=== PATIENT | female | born 1975 | race African-American/Black ===

== ENCOUNTER 2024-08-25 08:55 | Emergency (ER) | payer OTHER, MEDICAID, SELFPAY ==
--- NOTE | ~2024-08-25 | CT_ITS ---
CT brain wo con Ordering provider: Janel Moreno PA-C History: 49 years Female with . headache, vomiting, HTN . Comparison: None. Technique: CT of the head without contrast. Radiation reduction technique utilized.The dose-length pr oduct was 605.33 mGy-cm. FINDINGS: BRAIN PARENCHYMA AND CSF SPACES: No midline shift, mass effect or hemorrhage. The brain parenchyma a nd CSF spaces are otherwise normal. Empty sella turcica. VISUALIZED PARANASAL SINUSES: Well aerated. MASTOIDS: Well aerated. BONES: The bones appear intact. SOFT TISSUES: Visualized nasopharynx is normal. Superficial soft tissues are normal. IMPRESSION: No acute intracranial findings. Reviewed, dictated and finalized at location A.
[2024-08-25 09:01] VITALS: BP 190/117; PULSE 81; RESP 18; TEMP 36.7; O2SAT 100
[2024-08-25 09:31] LABS: Basophils Percent Auto 0.4 % (0.2-1.2); Hemoglobin 12.8 g/dL (12.0-15.0); Immature Granulocyte Absolute 0.04 K/mm3 (0.00-0.031); Immature Granulocyte Percent A 0.8 % (0-0.5); Lymphocytes Absolute Auto 0.76 K/mm3 (0.9-3.2); Mean Corpuscular HGB Conc 30.5 g/dl (32-36); Mean Corpuscular Hemoglobin 24.6 pg (26-34); Mean Corpuscular Volume 80.6 fl (80-100); Mean Platelet Volume 11.4 fl (7.4-10.4); Monocytes Absolute Auto 0.1 K/mm3 (0.1-0.6); Monocytes Percent Auto 2.8 % (2.6-8.5); Neutrophils Absolute Auto 4.1 K/mm3 (1.3-6.7); Platelet Count Result 225 k/mm3 (150-375); Red Blood Count 5.21 M/mm3 (4.2-5.4); Red Cell Distribution Width 14.3 % (11.5-14.5); White Blood Count 5.1 K/mm3 (4.5-10.0)
--- OUTSIDE RECORDS SUMMARY | 2024-08-25 09:31 | XMS_ITS | Encounter Summary ---
Author Organization [facility] Address [address] [place] [address] Phone Care Team Providers Care Electric Freight Car Operator Name Role Phone Tip Dietrich MD Primary Care Provider [phone] [phone] Hussain Billings MD Unavailable Loretta Maurice MD Unavailable Neymar Dempsey MD Unavailable Hanna Morrell APRN, CALL CENTER TEAM LEADER Unavailable [phone] Kisha Carballo STRAPPER OPERATOR Unavailable Unavailab le Reason for Visit * Reason Onset Date Comments Ankle Pain 08/03/2024 Encounter Details Date Type Department Care Team (Late st Contact Info) Description 08/03/2024 [facility] [address] [place] [address] Tip Dietrich MD [address] [address] Ankle Pain Social History Tobacco Use Types Packs/Day Years Used Date Smoking Tobacco: Every Day Cigarettes 0.3 28.5 Started: 04/15/1996 Smokeless Tobacco: Never Alcohol Use Standard Drinks/Week Comments Not Currently 0 (1 standard drink = 0.6 oz pur e alcohol) 2-3 times a year [facility] Utilities Answer Date Recorded In the past 12 months has e electric, gas, oil, or water company threatened to shut off services in your home? No 03/04/2024 Social Connection and Isolation Panel [NHANES] A nswer Date Recorded In a typical week, how many times do you talk on the phone with family, friends, or neighbors? Patient declined 03/04/2024 How often do you get togethe r with friends or relatives? Patient declined 03/04/2024 How often do you attend religious or taoist serv ices? Patient declined 03/04/2024 Do you belong to any clubs o r organizations such as religious groups, unions, fraternal or athletic groups, or school groups? No 03/04/2024 How often do you attend meet ings of the clubs or organizations you belong to? Never 03/04/2024 Are you , , di vorced, , never , or living with a partner? 03/04/2024 AUDIT-C Answer Date Recorded Q1: How often do you have a drink containing alc ohol? Patient declined 03/04/2024 Q2: How many drinks containi ng alcohol do you have on a typical day when you are drinking? Patient declined 03/04/2024 Q3: How often do you have si x or more drinks on one occasion? Patient declined 03/04/2024 Overall Financial Resource Strain (CARDIA) Answe r Date Recorded How hard is it for you to pa y for the very basics like food, housing, medical care, and heating? Very hard 03/04/2024 PHQ-2 Answer Date Recorded Total Score - Questions 1-9 1 05/17 [facility] - Occupational Stress Questionnaire Answer Date Recorded Do you feel stress - tense, restless, nervous, or anxious, or unable to sleep at night because your mind is troubled all the time - these days? Rather much 03/04/2024 Exercise Vital Sign Answer Date Recorde d On average, how many days pe r week do you engage in moderate to strenuous exercise (like a brisk walk)? 0 days 03/04/2024 On average, how many minutes do you engage in exercise at this level? 0 min 03/04/2024 Hunger Vital Sign Answer Date Recorded Within the past 12 months, y ou worried that your food would run out before you got the money to buy more. Sometimes true Within the past 12 months, t he food you bought just didn't last and you didn't have money to get more. Sometimes true PRAPARE - Transportation Answer Date Re corded In the past 12 months, has l ack of transportation kept you from medical appointments or from getting medications? Yes 02/14 In the past 12 months, has l ack of transportation kept you from meetings, work, or from getting things needed for daily living? Yes 03/04/2024 Housing Stability Vital Sign Answer Joel e Recorded In the last 12 months, was t here a time when you were not able to pay the mortgage or rent on time? Patient declined 05/13/19 24 In the last 12 months, how many places have you lived? 2 05/13/2023 In the last 12 months, was t here a time when you did not have a steady place to sleep or slept in a longterm (including now)? Patient declined 05/13/2023 Housing Stability Vital Sign Answer Joel e Recorded In the last 12 months, was t here a time when you were not able to pay the mortgage or rent on time? Yes 03/04/2024 In the past 12 months, how m any times have you moved where you were living? 2 03/04/2024 At any time in the past 12 m [facility], were you homeless or living in a longterm (including now)? No 03/04/2024 Sexually Active Control Partners Comments Not Currently Male Comments No Sex and Gender Information Value Date Recorded Sex Assigned at Not on file Legal Sex Female 9:43 PM CDT Gender Identity Not on file Sexual Orientation Not on file documented as of this encounter Miscellaneous Notes * Telephone Encounter - Tip Dietrich MD - 08/03/2024 9:54 AM CDT If she is having 10/10 ankle pain, tell her to go to the ER or our [facility] in [place] today. Thanks! * Telephone Encounter - Marsha Hawthorne RN - 08/03/2024 9:33 AM CDT SITUATION: ankle pain BACKGROUND: Patient contacting PCP office. Patient states symptoms started 3 days ago. Patient states her current walker is wobbling really bad. ASSESSMENT: Symptom Description / Location: Left ankle pain Using walker more due to pain Sharp ankle pain every time she goes to move it Denies calf pain or swelling Scared to step on it Denies warmth, redness or area tender to touch. Pain: 10/10, sharp, left ankle Fever: Denies fever. Treatment / Response: Tylenol #3with no relief RECOMMENDATION: Caller understands recommendation, but refuses disposition and is requesting provider recommendations. Patient states there is nothing Dr will do when I go in there , so patient only requesting provider recommendations and does not want an appointment. Patient is also requesting prescription for a new walker as hers is wobbly. Encounter routed to provider high priority to notify. Patient would like 1[employer] message with provider response. Allergies, medications, and pharmacy verified. Care advice provided per triage guideline. Caller verbalized understanding. Discussed utilizing 1Day[employer]over[employer] to: discuss if they would prefer a [employer] message or phone call response - See care advice and disposition for Guideline. First positive answer recorded, all responses to prior questions were negative. If symptoms increase, change or if new symptoms develop, call your health care provider or call back. Recommendations were based on caller information and is not a diagnosis. Verified and reviewed all triage information with caller. Reason for Disposition SEVERE pain (e.g., excruciating, unable to walk) and not improved after 2 hours of pain medicine Protocols used: Ankle Pain-A-[place] * Telephone Encounter - Nydia Laws - 08/03/2024 9:16 AM CDT Symptom: Foot or Ankle Pain - Not From Injury Outcome: Transfer to charter driver queue Reason: Trouble walking The caller accepted this outcome. documented in this encounter Plan of Treatment Upcoming Encounters Date Type Department Care Team (Late st Contact Info) Description 09/23/2024 10:00 AM CDT Office Visit [facility] - Family Medicine - [place] [address] [place] [address] Tip Dietrich MD #[address] [place] [address] 11/05/2024 10:15 AM CDT Office Visit [facility] - Pulmonology & Sleep Medicine [facility] [address] [place] [address] Neymar Dempsey MD [address] [place] [address] documented as of this encounter Goals Goal Patient Goal Type Associated Problems Recent Progress Patient-Stated? Author Find Help in My Community-furnitur e, housing options Patient Goals On track( 1:19 PM MANAGER ADMINISTRATION) Kisha Singleton LSW Note: Follow Up Date Month of 08/07 - call 211 when I need some help - follow-up on any referrals for help I am given Review resources provided for furniture and for housing through [facility] Development Office Reach out to the agencies that will be the most helpful Continue to follow-up with applications and programs applied for Why is this important? Knowing how and where to find help for yourself or family in your neighborhood and community is an important skill. You will want to take some steps to learn how. Notes: Maintain My Quality of Life Patient Goals Not on track( 025 1:19 PM MANAGER ADMINISTRATION) Kisha Singleton LSW Note: Follow Up Date: Month 08/07 - complete a living will - name a health care proxy (decision maker) Care Management to mail ACP packet Discusses wishes with my loved ones Reach out with any questions regarding ACP paperwork Why is this important? Having a long-term illness can be scary. It can also be stressful for you and your caregiver. These steps may help. Notes: documented as of this encounter Visit Diagnoses Not on filedocumented in this encounter Additional Health Concerns Assessment Noted Time PHQ-9 Depression Total Score: 1 06/04/19 25 9:27 AM MANAGER ADMINISTRATION documented as of this encounter Care Teams Electric Freight Car Operator Relationship Specialty Start Date End Date Tip Dietrich MD #2 [facility] [address] [place] [address] PCP - General Family Medicine 11/13/21 Hussain Billings MD #2 [facility] [address] [place] [address] Consulting Physician Colon and Rectal Surgery 12/05/21 Loretta Maurice MD #2 [facility] [address] [place] [address] Consulting Physician Endocrinology 01/16/22 Neymar Dempsey MD #[address] [place] [address] Consulting Physician Pulmonary Disease 09/20/23 Hanna Morrell, REINFORCING ROD LAYER, CALL CENTER TEAM LEADER #2 [facility] [address] [place] [address] Nurse Practitioner Advanced Practice Nurse 12/23/23 Kisha Carballo, STRAPPER OPERATOR [place] [employer] Equipment Setter Asbestos Remover 03/04/24 documented as of this encounter
--- OUTSIDE RECORDS SUMMARY | 2024-08-25 09:31 | XMS_ITS | Encounter Summary ---
Author Organization [facility] Address [address] [place] [address] Phone Care Team Providers Care Prompt Care Rn Name Role Phone Tip Dietrich MD Primary Care Provider [phone] Hussain Billings MD Unavailable Loretta Maurice MD Unavailable Kisha Carballo Unavailable Unavailab Neymar Peterson MD Unavailable Hanna Morrell APRN, BICYCLE COURIER Unavailable +- [phone] Kisha Carballo Unavailable Unavailab Neymar Peterson MD Unavailable Reason for Visit * Reason Comments Medication Refill Encounter Details Date Type Department Care Team (Late st Contact Info) Description 06/11/2023 [facility]ill [facility] [address] [place] [address] Tip Dietrich MD #[address] [address] Medication Refill Social History Tobacco Use Types Packs/Day Years Used Date Smoking Tobacco: Former Cigarettes 0.3 28.4 S tarted: 1996 Smokeless Tobacco: Never Alcohol Use Standard Drinks/Week Comments Yes 0 (1 standard drink = 0.6 oz pur e alcohol) 2-3 times a year [facility] Utilities Answer Date Recorded In the past 12 months has [employer], gas, oil, or water [employer] threatened to shut off services in your home? Patient declined 05/13/2023 Social Connection and Isolation Panel [NHANES] A nswer Date Recorded In a typical week, how many times do you talk on the phone with family, friends, or neighbors? Patient declined 05/13/2023 How often do you get togethe r with friends or relatives? Patient declined 05/13/2023 How often do you attend nondenominational or sikh serv ices? Patient declined 05/13/2023 Do you belong to any clubs o r organizations such as nondenominational groups, unions, fraternal or athletic groups, or school groups? Patient declined 05/13/2023 How often do you attend meet ings of the clubs or organizations you belong to? Patient declined 05/13/2023 Are you , , di vorced, , never , or living with a partner? Patient declined 05/13/2023 AUDIT-C Answer Date Recorded Q1: How often do you have a drink containing alc ohol? Patient declined 05/13/2023 Q2: How many drinks containi ng alcohol do you have on a typical day when you are drinking? Patient declined 05/13/2023 Q3: How often do you have si x or more drinks on one occasion? Patient declined 05/13/2023 Overall Financial Resource Strain (CARDIA) Answe r Date Recorded How hard is it for you to pa y for the very basics like food, housing, medical care, and heating? Patient declined 05/13/2023 PHQ-2 Answer Date Recorded Total Score - Questions 1-9 2 11/2023 [facility] - Occupational Stress Questionnaire Answer Date Recorded Do you feel stress - tense, restless, nervous, or anxious, or unable to sleep at night because your mind is troubled all the time - these days? Patient declined 05/13/2023 Exercise Vital Sign Answer Date Recorde d On average, how many days pe r week do you engage in moderate to strenuous exercise (like a brisk walk)? Patient declined On average, how many minutes do you engage in exercise at this level? Patient declined 05/13/2023 Hunger Vital Sign Answer Date Recorded Within the past 12 months, y ou worried that your food would run out before you got the money to buy more. Patient declined Within the past 12 months, t he food you bought just didn't last and you didn't have money to get more. Patient declined PRAPARE - Transportation Answer Date Re corded In the past 12 months, has l ack of transportation kept you from medical appointments or from getting medications? Patient declined 05/13/2023 In the past 12 months, has l ack of transportation kept you from meetings, work, or from getting things needed for daily living? Patient declined 05/13/2023 Housing Stability Vital Sign [...] place to sleep or slept in a assisted (including now)? Patient declined 05/13/2023 Sexually Active Control Partners Comments Not Currently Male Comments No Sex and Gender Information Value Date Recorded Sex Assigned at Not on file Legal Sex Female 9:43 PM CDT Gender Identity Not on file Sexual Orientation Not on file documented as of this encounter Miscellaneous Notes * Telephone Encounter - Arlene Mirza RN - 06/12/2023 7:08 AM CST E-Cancel Status: Request approved by pharmacy (06/12/2023 7:04 AM SIGNAL WORKER) AL WORKER * Telephone Encounter - Arlene Mirza RN - 06/12/2023 7:07 AM CST LM on pharmacy voicemail to cancel Rx. Call office with any questions. I also discontinued this on the medication list. AL WORKER * Telephone Encounter - Tip Dietrich MD - 06/11/2023 8:14 PM SIGNAL WORKER Please cancel this refill of Vit. D that I accidentally approved. She needs to get a Vit. D lab done first (nonfasting). Lab order enterered. Thanks! AL WORKER * Telephone Encounter - Arlene Mirza RN - 06/11/2023 5:21 PM CST Last Vitamin D level in September 2022. Do you want to recheck Vitamin D? Medication failed the protocol, provider to review and approve the medication order if appropriate. Requested Prescriptions Pending Prescriptions Disp Refills ergocalciferol (VITAMIN D) 87489 UNIT Capsule [Pharmacy Med Name: VITAMIN D2 50,000 UNIT CAPSULE] 4Capsule 2 Sig: TAKE 1 CAPSULE BY MOUTH ONCE A WEEK FOR 12 DOSES. Vitamin Supplements (Adult) Protocol Failed - 06/11/2023 4:37 PM Failed - Active on medication list Failed - Vitamin D dose not greater than 1.25mg Passed - Visit with relevant provider in past 12 months or upcoming 90 days Recent Visits Date Type Provider Dept 05/13/23 Office Visit Tip Dietrich MD [facility] 03/12/23 Telemedicine Tip Dietrich MD [facility] 01/11/23 Telemedicine Tip Dietrich MD [facility] 10/24/22 Telemedicine Tip Dietrich MD [facility] 10/12/22 Office Visit Holly Limon APRN, BICYCLE COURIER [facility] 07/02/22 Office Visit Tip Dietrich MD [facility] Showing recent visits within past 365 days and meeting all other requirements Future Appointments Date Type Provider Dept 08/22/23 Appointment Tip Dietrich MD [facility] Showing future appointments within next 90 days and meeting all other requirements AL WORKER documented in this encounter Plan of Treatment Upcoming Encounters Date Type Department Care Team (Late st Contact Info) Description 09/23/2024 10:00 AM CDT Office Visit [facility] - Family Medicine - [place] [address] [place] [address] [facility] [address] [address] 11/05/2024 10:15 AM CDT Office Visit [facility] - Pulmonology & Sleep Medicine - [place] #2 [facility] [place] [address] Neymar Dmepsey MD #2 [facility] [place] [address] documented as of this encounter Results * VITAMIN D, 25 HYDROXY TOTAL (07/19/2023 8:27 AM CDT) VITAMIN D, 25 HYDROX 20 ng/mL 07/19/2023 11:21 AM CDT [facility] Blood Venipuncture / Unknown 07/19/2023 8:27 AM CDT 07/19/2023 9:32 AM CDT Narrative [facility] - 07/19/2023 11:21 AM CDT Published reference ranges for Vitamin D vary depending on time and place and method of testing, and on patient's age, sex, ethnicity and levels of other measured analytes such as parathormone, calcium and phosphorus. The result should be evaluated in conjunction with clinical findings and suspicions. [place] [facility] and Endocrine Clinical Practice Guidelines: Status Vitamin D levels (ng/mL) Deficient <=20 At risk of inadequacy 21-29 Sufficient 30-100 Centers of Disease Control and Prevention Guidelines: Status Vitamin D levels (ng/mL) Deficient <13 At risk of inadequacy 13-19 Sufficient 20-50 Possibly harmful >50 References: [place] [facility], 2010 Dietary reference intakes for calcium and vitamin D. [place]: The National Academies Press. Michelle M, Mikael N, Hussein JEAN-BAPTISTE, et al., Evaluation, treatment, and prevention of Vitamin D deficiency: an Endocrinology Clinical Practice Guideline. JCEM 2011 96: 7 1892-8533. Lala A, Fernandez C, Kike D, et al., Vitamin D Status: [place], 2165-9341, [facility] data brief, no. 59, MD [place]: [place] [facility] Statistics. 2011. Tip Dietrich MD CHEMISTRY ORDERABLES Alma Delia dailey Result [facility] [address] [place] [address] documented in this encounter Visit Diagnoses Diagnosis Vitamin D deficiency- Primary Unspecified vitamin D deficiency documented in this encounter Additional Health Concerns Infection Onset Date Last Indicated Resolved Time COVID - 19 04/01/2024 04/01/2024 04/01/2024 11:1 2 AM SIGNAL WORKER COVID - 19 07/11/2024 07/11/2024 07/11/2024 10:1 4 AM CDT Assessment Noted Time PHQ-9 Depression Total Score: 2 04/22/19 24 2:10 PM SIGNAL WORKER documented as of this encounter Care Teams Prompt Care Rn Relationship Specialty Start Date End Date Tip Dietrich MD #[address] [address] PCP - General Family Medicine 11/13/21 Hussain Billings MD #[address] [address] Consulting Physician Colon and Rectal Surgery 12/05/21 Loretta Maurice MD #[address] [id number] Consulting Physician Endocrinology 01/16/22 Kisha Carballo, FOUNDRY MOLDER OR Assistant Tennis Professional Break Out Worker 04/03/23 10/30/23 Neymar Dempsey MD #2 [place] [phone] Consulting Physician Pulmonary Disease 09/20/23 Hanna Morrell APRN, BICYCLE COURIER #2 [facility] [address] [place] [address] Nurse Practitioner Advanced Practice Nurse 12/23/23 Kisha Carballo LSW OR Assistant Tennis Professional Break Out Worker 03/04/24 Neymar Dempsey MD #2 [facility] [place] [address] Consulting Physician Pulmonary Disease 05/05/24 5 documented as of this encounter
--- OUTSIDE RECORDS SUMMARY | 2024-08-25 09:31 | XMS_ITS | Encounter Summary ---
Author Organization [facility] Address [address] [place] [address] Phone Care Team Providers Care Reinsurance Analyst Name Role Phone Tip Dietrich MD Primary Care Provider +1 [phone] Hussain Billings MD Unavailable Loretta Maurice MD Unavailable Kisha Carballo BROACH TROUBLE SHOOTER Unavailable Unavailab Neymar Peterson MD Unavailable Hanna Morrell APRN, ENVIRONMENTAL HEALTH SANITARIAN Unavailable +1- [phone] Kisha Carballo Unavailable Unavailab Neymar Peterson MD Unavailable Reason for Referral * Consult, Test & Initiate Treatment (Less Than 2 Weeks) - Closed Specialty Diagnoses / Procedures Referred By Salvatore roman Referred To Contact Diagnoses Abnormal thyroid ultrasound Multiple thyroid nodules Tip Dietrich MD #2 [facility] [address] [place] [address] Phone: tel: fax: Elizabet Lopez, CERTIFIED MEDICAL ASST, ENVIRONMENTAL HEALTH SANITARIAN 2 [facility] [address] [place] [address] Phone: tel: fax: Referral ID Status Reason Start Date Expiration Date Visits Re quested Visits Authorized [id number] Closed 09/25/2023 1 1 Scheduling Instructions Christiana is being referred to Elizabet Lopez NP at [facility] or other specialist in patient's insurance network thyroid nodules & abnormal thyroid ultrasound See below for Christiana's current medications, allergies and problem list. CURRENT MEDS: Current Outpatient Medications: albuterol 108 (90 Base) MCG/ACT Aerosol Solution, take 1-2 Puffs by inhalation every 6 hours as needed for Wheezing., Disp: 18 g, Rfl: 1 amLODIPine (NORVASC) 5 MG Tablet, TAKE 1 TABLET BY MOUTH IN THE MORNING AND IN THE EVENING, Disp: 180 Tablet, Rfl: 1 Benzonatate 200 MG Capsule, Take 200 mg by mouth. (Patient not taking: Reported on 03/08/2023), Disp: , Rfl: Blood Glucose Monitoring Suppl ([employer] Verio Flex System) w/Device Kit, , Disp: , Rfl: Blood Pressure Monitor Device, Dispense battery-operated arm cuff. Dx: I10 (Patient not taking: Reported on 07/16/2023), Disp: 1 Each, Rfl: 0 docusate sodium (COLACE) 100 MG Capsule, Take 1 Capsule by mouth daily., Disp: 90 Capsule, Rfl: 0 ergocalciferol (VITAMIN D) 06392 UNIT Capsule, Take 1 Capsule by mouth once a week for 12 doses., Disp: 12 Capsule, Rfl: 0 ferrous sulfate 325 (65 Fe) MG Tablet, Take 1 Tablet by mouth daily., Disp: 90 Tablet, Rfl: 0 gabapentin (NEURONTIN) 300 MG Capsule, Take 1 Capsule by mouth 3 times daily., Disp: 90 Capsule, Rfl: 5 HYDROcodone-acetaminophen (NORCO) 7.5-325 MG Tablet, Take 1 Tablet by mouth 2 times daily as needed for Moderate or more severe pain., Disp: 60 Tablet, Rfl: 0 ibuprofen (MOTRIN) 600 MG Tablet, Take 1 Tablet by mouth daily as needed for Moderate or more severe pain. (Patient not taking: Reported on 08/22/2023), Disp: 30 Tablet, Rfl: 3 meloxicam (MOBIC) 7.5 MG Tablet, TAKE 1 TABLET BY MOUTH EVERY DAY WITH FOOD, Disp: , Rfl: predniSONE (DELTASONE) 20 MG Tablet, Take 1 Tablet by mouth 2 times daily., Disp: 10 Tablet, Rfl: 0 solifenacin (VESICARE) 5 MG Tablet, Take 1 Tablet by mouth daily. (Patient not taking: Reported on 10/23/2022), Disp: 30 Tablet, Rfl: 1 tiZANidine (ZANAFLEX) 2 MG Tablet, TAKE 1-2 TABLETS BY MOUTH AT BEDTIME NEEDED, Disp: 60 Tablet, Rfl: 0 triamterene-hydrochlorothiazide (DYAZIDE) 37.5-25 MG Capsule, Take 1 Capsule by mouth daily., Disp: 90 Capsule, Rfl: 1 No current facility-administered medications for this visit. ALLERGIES: No Known Allergies PROBLEM LIST: Patient Active Problem List: Iron deficiency anemia Menorrhagia HTN (hypertension) COPD (chronic obstructive pulmonary disease) (HCC) Goiter Chronic pain syndrome Vitamin D deficiency Elevated serum creatinine Morbid obesity (HCC) Urinary urgency Tobacco use disorder COVID-19 Hypokalemia Syncope History of pneumonia Breast cancer screening by mammogram Sciatica of left side Chronic pain of left knee Constipation Postmenopausal Abnormal thyroid ultrasound Hot flashes Spinal stenosis of lumbar region with neurogenic claudication AMADOR (obstructive sleep apnea) Reason for Visit * Reason Onset Date Comments Referral 09/20/2023 Encounter Details Date Type Department Care Team (Late st Contact Info) Description 09/20/2023 Telephone [facility] - Family Medicine [facility] #2 [place] [address] Tip Dietrich MD #[address] [address] Referral Social History Tobacco Use Types Packs/Day Years Used Date Smoking Tobacco: Former Cigarettes 0.3 28.4 S tarted: 1996 Smokeless Tobacco: Never Alcohol Use Standard Drinks/Week Comments Yes 0 (1 standard drink = 0.6 oz pur e alcohol) 2-3 times a year [facility] Utilities Answer Date Recorded In the past 12 months has [employer], gas, oil, or water company threatened to [...] declined 05/13/2023 How often do you attend jewish or tenriism serv ices? Patient declined 05/13/2023 Do you belong to any clubs o r organizations such as jewish groups, unions, fraternal or athletic groups, or [...] Total Score - Questions 1-9 2 11/2023 [facility] - Occupational [...] place to sleep or slept in a mcc (including now)? Patient declined 05/13/2023 Sexually Active Control Partners Comments Not Currently Male Comments No Sex and Gender Information Value Date Recorded Sex Assigned at Not on file Legal Sex Female 9:43 PM CDT Gender Identity Not on file Sexual Orientation Not on file documented as of this encounter Miscellaneous Notes * Telephone Encounter - Tip Dietrich MD - 09/25/2023 12:06 PM CDT I have addended the referral order for Elizabet Lopez NP with new diagnosis. Thanks! * Telephone Encounter - Rox Noel RN - 09/24/2023 5:31 PM CDT Canceled old Endo old. New External Endo referral pended to PCP. Not sure what Provider to replace Elizabet Lopez this is for dx Obesity. * Telephone Encounter - Tip Dietrich MD - 09/24/2023 2:27 PM CDT Please cancel out this old Endo referral. I put a new one in with a different provider. Thanks! * Telephone Encounter - Rox Noel, RN - 09/24/2023 2:22 PM CDT Already have an External Endocrinology referral, we need to : the provider has the following option(s): Need dx code updated in referral order or office note. Then they can process referral. * Telephone Encounter - Tip Dietrich MD - 09/22/2023 9:19 PM CDT Please pend me an order for EXTERNAL Endocrinology. Thanks! documented in this encounter Plan of Treatment Upcoming Encounters Date Type Department Care Team (Late st Contact Info) Description 09/23/2024 10:00 AM CDT Office Visit [facility] - Family Medicine [facility] #2 [place] [address] Tip Dietrich MD #[address] [address] 11/05/2024 10:15 AM CDT Office Visit [facility] - Pulmonology & Sleep Medicine [facility] #2 [place] [address] Neymar Dempsey MD #2 [place] [address] Scheduled Referrals Name Type Priority Associated Diagnoses Order Schedule EXTERNAL ENDOCRINOLOGY REFERRAL Outpatient Referral Less Than 2 weeks Abnormal thyroid ultrasound Multiple thyroid nodules Expected: 09/25/2023 (Approximate), Expires: 09/24/2024 documented as of this encounter Visit Diagnoses Diagnosis Goiter- Primary Goiter, unspecified Abnormal thyroid ultrasound Nonspecific abnormal results of thyroid function study Multiple thyroid nodules Nontoxic multinodular goiter documented in this encounter Additional Health Concerns Infection Onset Date Last Indicated Resolved Time COVID - 19 04/01/2024 04/01/2024 04/01/2024 11:1 2 AM DIVISION LEADER COVID - 19 07/11/2024 07/11/2024 07/11/2024 10:1 4 AM CDT Assessment Noted Time PHQ-9 Depression Total Score: 2 04/22/19 2:10 PM DIVISION LEADER documented as of this encounter Care Teams Reinsurance Analyst Relationship Specialty Start Date End Date Tip Dietrich MD #[address] [address] PCP - General Family Medicine 11/13/21 Hussain Billings MD #2 [facility] [address] [place] [address] Consulting Physician Colon and Rectal Surgery 12/05/21 Loretta Maurice MD #[address] [address] Consulting Physician Endocrinology 01/16/22 Kisha Carballo LSW [place] Reporting Process Consultant Child Life Assistant 04/03/23 10/30/23 Neymar Dempsey MD #2 [place] [address] Consulting Physician Pulmonary Disease 09/20/23 Hanna Morrell APRN, ENVIRONMENTAL HEALTH SANITARIAN #2 [facility] [address] [place] [address] Nurse Practitioner Advanced Practice Nurse 12/23/23 Kisha Carballo LSW [place] Reporting Process Consultant Child Life Assistant 03/04/24 Neymar Dempsey MD #2 [place] [address] Consulting Physician Pulmonary Disease 05/05/24 5 documented as of this encounter
--- OUTSIDE RECORDS SUMMARY | 2024-08-25 09:31 | XMS_ITS | Encounter Summary ---
Author Organization [facility] Address [address] [place] [address] Phone Care Team Providers Care Commercial Green Building Designer Name Role Phone Tip Dietrich MD Primary Care Provider [phone] [phone] Hussain Billings MD Unavailable Loretta Maurice MD Unavailable Neymar Dempsey MD Unavailable Hanna Morrell APRN, STAKING PRESS OPERATOR Unavailable +- [phone] Kisha Carballo Unavailable Unavailab Neymar Peterson MD Unavailable Reason for Visit * Reason Onset Date Comments Prior Authorization 05/04/2024 AUTH DENIED, P2P OFFERED. Encounter Details Date Type Department Care Team (Late st Contact Info) Description 05/04/2024 Telephone [facility] Outpatient [address] [place] [address] Jory Khanna, PAC [address] [place] [address] Prior Authorization (AUTH DENIED, P2P OFFERED.) Social History Tobacco Use Types Packs/Day Years Used Date Smoking Tobacco: Former Cigarettes 0.3 28.5 S tarted: 04/15/1996 Smokeless Tobacco: Never Alcohol Use Standard Drinks/Week Comments Not Currently 0 (1 standard drink = 0.6 oz pur e alcohol) 2-3 times a year [facility] Utilities Answer Date Recorded In the past 12 months has [employer], gas, oil, or water company threatened to [...] declined 03/04/2024 How often do you attend mandaen or scientologist serv ices? Patient declined 03/04/2024 Do you belong to any clubs o r organizations such as mandaen groups, unions, fraternal or athletic groups, or [...] Date Recorded Total Score - Questions 1-9 4 02/14 [facility] - Occupational Stress Questionnaire Answer Date [...] place to sleep or slept in a detention (including now)? Patient declined 05/13/2023 Housing Stability [...] any time in the past 12 m [facility], were you homeless or living in a detention (including now)? No 03/04/2024 Sexually Active Control Partners Comments Not Currently Male Comments No Sex and Gender Information Value Date Recorded Sex Assigned at Not on file Legal Sex Female 9:43 PM CDT Gender Identity Not on file Sexual Orientation Not on file documented as of this encounter Miscellaneous Notes * Telephone Encounter - Tip Dietrich MD - 05/07/2024 2:32 PM RADIOSONDE SPECIALIST Thanks for setting this up :) OSONDE SPECIALIST * Telephone Encounter - Ramila Smith RN - 05/07/2024 2:25 PM CST Called and scheduled a peer to peer on 05-11-2024 at 1:30 They will call for this. OSONDE SPECIALIST * Telephone Encounter - Tip Dietrich MD - 05/04/2024 3:05 PM RADIOSONDE SPECIALIST Schedule a peer to peer this week for this. Thanks! OSONDE SPECIALIST * Telephone Encounter - Shirley Browning Tesfaye - 05/04/2024 2:21 PM CST Auth Denied-P2P offered Ordering Provider: Internal If external office contacted, phone number called: N/A Spoke to: N/A Appointment Info: Clinic: [facility] Cardiology Services Clinic Provider: DEBRA Appt Date/Time: Saturday 5:00 PM Payor + Plan: MEDICAID [facility] [facility] - [employer] [facility] MEDICAID CPT/Test: 77521 ADULT TRANS THORACIC ECHO 2D COMPLETE Authorization denied through: [employer] Phone number called: [phone] Reference number / front desk representative's name and time of call: PAIGEMANUELITO Mackay Estimated Amount [Full Charges]: N/A Reason for denial: Imaging can be done when the notes from your doctor show one of these new or worsening signs and/or symptoms of heart disease. -You have chest pain or discomfort. -You have events that feel like your heart is beating very fast, fluttering or pounding. -One of the other signs and/or symptoms listed in this guideline. The notes sent to us do not show any of these. A study like the one requested has already been approved for you. An approval letter has been sent to you. We need results of the prior approved study that show the need for repeat imaging or your doctor must confirm that the prior approved study was not performed and will not be performed. The notes sent from your doctor did not provide these details. Add'l Steps Taken (Pt Notified, Reached out to Provider, etc.): TE SENT AND PT NOTIFIED Peer to Peer review offered by Payer: Yes Peer to Peer review expires: 05/13/24 Case #: [id number] Phone #: [phone] OPT 4 Ordering Provider: SRI Simons. Notified? Yes Note for ordering office: If patient wishes to cancel the appointment, please complete cancellationprocess from the patient's appointment desk. OSONDE SPECIALIST documented in this encounter Plan of Treatment Upcoming Encounters Date Type Department Care Team (Late st Contact Info) Description 09/23/2024 10:00 AM CDT Office Visit [facility] - Family Medicine - [place] #2 [place] [address] Tip Dietrich MD #[address] [address] 11/05/2024 10:15 AM CDT Office Visit [facility] - Pulmonology & Sleep Medicine - [place] #2 [place] [address] Neymar Dempsey MD #2 [place] [address] documented as of this encounter Goals Goal Patient Goal Type Associated Problems Recent Progress Patient-Stated? Author Find Help in My Community-furnitur e, housing options Patient Goals On track( 025 1:19 PM RADIOSONDE SPECIALIST) Kisha Singleton LSW Note: Follow Up Date Month of 08/07 - call 211 when I need some help - follow-up on any referrals for help I am given Review resources provided for furniture and for housing through [facility] Development Office Reach out to the [...] Goals Not on track( 025 1:19 PM RADIOSONDE SPECIALIST) Kisha Singleton LSW Note: Follow Up Date: [...] filedocumented in this encounter Additional Health Concerns Infection Onset Date Last Indicated Resolved Time COVID - 19 07/11/2024 07/11/2024 07/11/2024 10:1 4 AM CDT Assessment Noted Time PHQ-9 Depression Total Score: 4 03/04/20 24 11:50 AM RADIOSONDE SPECIALIST documented as of this encounter Care Teams Commercial Green Building Designer Relationship Specialty Start Date End Date Tip Dietrich MD #[address] [address] PCP - General Family Medicine 11/13/21 Hussain Billings MD #[address] [address] Consulting Physician Colon and Rectal Surgery 12/05/21 Loretta Maurice MD #[address] [address] Consulting Physician Endocrinology 01/16/22 Neymar Dempsey MD #2 [place] [address] Consulting Physician Pulmonary Disease 09/20/23 Hanna Morrell, RESIN SHAVER, STAKING PRESS OPERATOR #2 [facility] [address] [place] [address] Nurse Practitioner Advanced Practice Nurse 12/23/23 Kisha Carballo, [facility] Chip Unloader Surveillance Camera Technician 03/04/24 Neymar Dempsey MD #[address] [place] [address] Consulting Physician Pulmonary Disease 05/05/24 5 documented as of this encounter
--- OUTSIDE RECORDS SUMMARY | 2024-08-25 09:32 | XMS_ITS | Encounter Summary ---
Author Organization [facility] Address [address] [place] [address] Phone Care Team Providers Care Practice Assistant Name Role Phone Tip Dietrich MD Primary Care Provider +1 [phone] Kisha Carballo Unavailable Unavailab Hussain Park MD Unavailable Loretta Maurice MD Unavailable Kisha Carballo Unavailable Unavailab Neymar Peterson MD Unavailable Hanna Morrell APRN, SYSTEM OPERATOR Unavailable +- [phone] Kisha Carballo Unavailable Unavailab Neymar Peterson MD Unavailable Reason for Visit * Reason Comments Medication Refill Encounter Details Date Type Department Care Team (Late st Contact Info) Description 07/22/2022 Refill [facility] - Family Medicine [facility] #2 [place] [address] Tip Dietrich MD #[address] [address] Medication Refill Social History Tobacco Use Types Packs/Day Years Used Date Smoking Tobacco: Former Cigarettes 0.3 28.4 S tarted: 1996 Smokeless Tobacco: Never Alcohol Use Standard Drinks/Week Comments Yes 0 (1 standard drink = 0.6 oz pur e alcohol) 2-3 times a year PHQ-2 Answer Date Recorded Total Score - Questions 1-9 1 11/13 Sexually Active Control Partners Comments Not Currently Male Comments No Sex and Gender Information Value Date Recorded Sex Assigned at Not on file Legal Sex Female 9:43 PM CDT Gender Identity Not on file Sexual Orientation Not on file COVID-19 Exposure Response Date Recorded In the last 10 days, have yo u been in contact with someone who was confirmed or suspected to have Coronavirus/COVID-19? No / Unsure 07/02/2022 3:26 PM CDT documented as of this encounter Miscellaneous Notes * Telephone Encounter - Magalie Beckman RN - 07/23/2022 9:42 AM CDT Refill requested too soon. documented in this encounter Plan of Treatment Upcoming Encounters Date Type Department Care Team (Late st Contact Info) Description 09/23/2024 10:00 AM CDT Office [facility] - Family Medicine - [place] #2 [place] [address] Tip Dietrich MD #[address] [address] 11/05/2024 10:15 AM CDT Office Visit [facility] - Pulmonology & Sleep Medicine [facility] #2 [place] [address] Neymar Dempsey MD #[address] [place] [address] documented as of this encounter Visit Diagnoses Not on filedocumented in this encounter Additional Health Concerns Infection Onset Date Last Indicated Resolved Time COVID - 19 04/01/2024 04/01/2024 04/01/2024 11:1 2 AM CABLE WEAVER COVID - 19 07/11/2024 07/11/2024 07/11/2024 10:1 4 AM CDT documented as of this encounter Care Teams Practice Assistant Relationship Specialty Start Date End Date Tip Dietrich MD #2 [facility] [address] [place] [address] PCP - General Family Medicine 11/13/21 Kisha Carballo, WEATHERIZATION INSTALLER [place] Guest Services Representative 11/23/21 08/30/22 Hussain Billings MD #2 [facility] [address] [place] [address] Consulting Physician Colon and Rectal Surgery 12/05/21 Loretta Maurice MD #2 [facility] [address] [place] [address] Consulting Physician Endocrinology 01/16/22 Kisha Carballo, WEATHERIZATION INSTALLER [place] Warehouse Shipping Supervisor Guest Services Representative 04/03/23 10/30/23 Neymar Dempsey MD #[address] [place] [address] Consulting Physician Pulmonary Disease 09/20/23 Hanna Morrell APRN, SYSTEM OPERATOR #2 [facility] [address] [place] [address] Nurse Practitioner Advanced Practice Nurse 12/23/23 Kisha Carballo LSW [place] Warehouse Shipping Supervisor Guest Services Representative 03/04/24 Neymar Dempsey MD #[address] [place] [address] Consulting Physician Pulmonary Disease 05/05/24 5 documented as of this encounter
--- OUTSIDE RECORDS SUMMARY | 2024-08-25 09:32 | XMS_ITS | Encounter Summary ---
Author Organization [facility] Address [address] [place] [address] Phone Care Team Providers Care Sand Drier Name Role Phone Tip Diertich MD Primary Care Provider [phone] [phone] Kisha Carballo Unavailable Unavailab Hussain Park MD Unavailable Loretta Maurice MD Unavailable Kisha Carballo Unavailable Unavailab Neymar Peterson MD Unavailable Hanna Morrell APRN, TELEVISION NEWS PRODUCER Unavailable +- [phone] Kisha Carballo Unavailable Unavailab Neymar Peterson MD Unavailable Reason for Visit * Reason Comments Medication Refill Encounter Details Date Type Department Care Team (Late st Contact Info) Description 06/04/2022 Refill [facility] - Family Medicine - [place] #2 [place] [address] Tip Dietrich MD #[address] [address] Medication Refill Social History Tobacco Use Types [...] Telephone Encounter - Magalie Beckman RN - 06/04/2022 11:42 AM ELEMENTARY CLASSROOM TEACHER PDMP 05/04/22 #60 Medication failed the protocol, provider to review and approve the medication order if appropriate. Requested Prescriptions Pending Prescriptions Disp Refills tiZANidine (ZANAFLEX) 2 MG Tablet [Pharmacy Med Name: TIZANIDINE HCL 2 MG TABLET] 60 Tablet 0 Sig: TAKE 1-2 TABLETS BY MOUTH AT BEDTIME NEEDED Not Delegated - Muscle Relaxants Protocol Failed - 06/04/2022 12:03 AM Failed - This refill cannot be delegated Passed - Visit with relevant provider in past 12 months or upcoming 90 days Recent Visits Date Type Provider Dept 04/03/22 Office Visit Tip Dietrich MD [facility] 12/26/21 Office Visit Tip Dietrich MD [facility] 12/11/21 Office Visit Sam Rowell APRN, [facility] [place] 11/13/21 Office Visit Sam Rowell [facility], [facility] Showing recent visits within past 365 days and meeting all other requirements Future Appointments Date Type Provider Dept 07/02/22 Appointment Tip Dietrich MD [facility] Showing future appointments within next 90 days and meeting all other requirements Passed - ALT less than 90 and AST less than 55 on record in past 12 months SGOT (AST) Date Value Ref Range Status 03/20/2022 13 <=32 U/L Final SGPT (ALT) Date Value Ref Range Status 03/20/2022 10 <=41 U/L Final ENTARY CLASSROOM TEACHER documented in this encounter Plan of Treatment Upcoming Encounters Date Type Department Care Team (Late st Contact Info) Description 09/23/2024 10:00 AM CDT Office Visit [facility] #2 [place] [address] Tip Dietrich MD #[address] [address] 11/05/2024 10:15 AM CDT Office Visit [facility] - Pulmonology & Sleep Medicine [facility] #2 [place] [address] Neymar Dempsey MD #2 [place] [address] documented as of this encounter Visit Diagnoses Not on filedocumented in this encounter Additional Health Concerns Infection Onset Date Last Indicated Resolved Time COVID - 19 04/01/2024 04/01/2024 04/01/2024 11:1 2 AM ELEMENTARY CLASSROOM TEACHER COVID - 19 07/11/2024 07/11/2024 07/11/2024 10:1 4 AM CDT documented as of this encounter Care Teams Sand Drier Relationship Specialty Start Date End Date Tip Dietrich MD #[address] [address] PCP - General Family Medicine 11/13/21 Kisha Carballo LSW [place] Composite Worker 11/23/21 08/30/22 Hussain Billings MD #[address] [address] Consulting Physician Colon and Rectal Surgery 12/05/21 Loretta Maurice MD #[address] [address] Consulting Physician Endocrinology 01/16/22 Kisha Carballo LSW [place] Policewoman Composite Worker 04/03/23 10/30/23 Neymar Dempsey MD #2 [place] [address] Consulting Physician Pulmonary Disease 09/20/23 Hanna Morrell APRN, TELEVISION NEWS PRODUCER #[address] [address] Nurse Practitioner Advanced Practice Nurse 12/23/23 Kisha Carballo LSW [place] Policewoman Composite Worker 03/04/24 Neymar Dempsey MD #2 [place] [address] Consulting Physician Pulmonary Disease 05/05/24 5 documented as of this encounter
--- OUTSIDE RECORDS SUMMARY | 2024-08-25 09:32 | XMS_ITS | Encounter Summary ---
Author Organization [facility] Address [address] [place] [address] Phone Care Team Providers Care Shrimp Packer Name Role Phone Tip Dietrich MD Primary Care Provider [phone] Hussain Billings MD Unavailable Loretta Maurice MD Unavailable Kisha Carballo FOOD MIXER ASSEMBLER Unavailable Unavailab Neymar Peterson MD Unavailable Hanna Morrell APRN, SASH STICKER Unavailable +1- [phone] Kisha Carballo Unavailable Unavailab Neymar Peterson MD Unavailable Reason for Visit * Reason Onset Date Comments Referral 11/28/2022 External Pain Re ferral Encounter Details Date Type Department Care Team (Late st Contact Info) Description 11/28/2022 Telephone [facility] [address] [place] [address] Tip Dietrich MD #[address] [address] Referral (External Pain Referral) Social History Tobacco Use Types Packs/Day Years [...] encounter Miscellaneous Notes * Telephone Encounter - Jesi Shaw RMA - 12/05/2022 1:42 PM CDT Pt notified * Telephone Encounter - Jesi Shaw RMA - 12/03/2022 9:17 AM CDT Lvm to return call * Telephone Encounter - Tip Dietrich MD - 12/01/2022 5:18 PM CDT OK, looks like she already has an open pain management referral. Please make sure she gets scheduled. Thanks! * Telephone Encounter - Jesi Shaw RMA - 11/29/2022 8:54 AM CDT Spoke with patient, states she has no insurance but yes would like to proceed to see pain management, * Telephone Encounter - Jesi Shaw RMA - 11/28/2022 9:46 AM CDT Lvm to return call * Telephone Encounter - Holly Limon APRN, LAMBERT - 11/28/2022 8:56 AM CDT Please call patient and see if she still wants to see pain management. * Telephone Encounter - Kiesha Herrera - 11/28/2022 8:36 AM CDT SITUATION: [facility] Referrals is requesting provider review for External Pain Referral. BACKGROUND: Referral unable to be processed. ASSESSMENT: Request for provider review due to the following reason(s): Patient refusal or unable to contact patient. RECOMMENDATION: Based on the above information the provider has the following option(s): Multiple attempts have been made to contact patient about referral with no response. No further attempts will be made. Referral closed. documented in this encounter Plan of Treatment Upcoming Encounters Date Type Department Care Team (Late st Contact Info) Description 09/23/2024 10:00 AM CDT Office Visit 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 COVID - 19 07/11/2024 07/11/2024 07/11/2024 10:1 4 AM CDT documented as of this encounter Care Teams Shrimp Packer Relationship Specialty Start Date End Date Tip Dietrich MD #2 [facility] [address] [place] [address] PCP - General Family Medicine 11/13/21 Hussain Billings MD #2 [facility] [address] [place] [address] Consulting Physician Colon and Rectal Surgery 12/05/21 Loretta Maurice MD #2 [facility] [address] [place] [address] Consulting Physician Endocrinology 01/16/22 Kisha Carballo, FOOD MIXER ASSEMBLER [place] Parts Designer Funeral Assistant 04/03/23 10/30/23 Neymar Dempsey MD #2 [place] [address] Consulting Physician Pulmonary Disease 09/20/23 Hanna Morrell APRN, SASH STICKER #2 [facility] [address] [place] [address] Nurse Practitioner Advanced Practice Nurse 12/23/23 Kisha Carballo, FOOD MIXER ASSEMBLER [place] Parts Designer Funeral Assistant 03/04/24 Neymar Dempsey MD #2 [place] [address] Consulting Physician Pulmonary Disease 05/05/24 5 documented as of this encounter
--- OUTSIDE RECORDS SUMMARY | 2024-08-25 09:32 | XMS_ITS | Encounter Summary ---
Author Organization [facility] Address [address] [place] [address] Phone Care Team Providers Care Mine Inspector Name Role Phone Tip Dietrich MD Primary Care Provider [phone] [phone] Hussain Billings MD Unavailable Loretta Maurice MD Unavailable Kisha Carballo Unavailable Unavailab Neymar Peterson MD Unavailable Hanna Morrell APRN, MANAGER SEARCH Unavailable +- [phone] Kisha Carballo Unavailable Unavailab Neymar Peterson MD Unavailable Reason for Visit * Reason Comments Medication Refill Encounter Details Date Type Department Care Team (Late st Contact Info) Description 03/31/2023 Refill [facility] - Family Medicine [facility] #2 [place] [address] Tip Dietrich MD #[address] [address] Medication Refill Social History Tobacco Use Types [...] Telephone Encounter - Arlene Mirza RN - 04/01/2023 9:10 AM CST PRN medication requires review from provider Per nursing clinical judgement, provider to review and approve the medication(s) order(s) if appropriate. Requested Prescriptions Pending Prescriptions Disp Refills ibuprofen (MOTRIN) 600 MG Tablet [Pharmacy Med Name: IBUPROFEN 600 MG TABLET] 30 Tablet 3 Sig: TAKE 1 TABLET BY MOUTH ONCE DAILY NEEDED FOR MILD OR MORE SEVERE PAIN NSAIDs Protocol Passed - 03/31/2023 6:37 PM Passed - Normal serum creatinine in past 12 months CREATININE, BLOOD Date Value Ref Range Status 10/12/2022 0.74 0.60 - 1.10 mg/dL Final Passed - No positive test in the past 12 months or most recent test was negative Passed - Visit with relevant provider in past 12 months or upcoming 90 days Recent Visits Date Type Provider Dept 03/12/23 Telemedicine Tip Dietrich MD [facility] 01/11/23 Telemedicine Tip Dietrich MD [facility] 10/24/22 Telemedicine Tip Dietrich MD [facility] 10/12/22 Office Visit Holly Limon APRN, [facility] [place] 07/02/22 Office Visit Tip Dietrich MD [facility] 04/03/22 Office Visit Tip Dietrich MD [facility] Showing recent visits within past 365 days and meeting all other requirements Future Appointments Date Type Provider Dept 05/13/23 Appointment Tip Dietrich MD [facility] Showing future appointments within next 90 days and meeting all other requirements Passed - No active on record Passed - No matching NSAID med order in past 45 days No matching medication orders between 02/15/2023 9:10 AM and 04/01/2023 9:10 AM Passed - AST less than 55 or ALT less than 90 in past 12 months SGOT (AST) Date Value Ref Range Status 10/12/2022 15 <=32 U/L Final SGPT (ALT) Date Value Ref Range Status 10/12/2022 16 <=41 U/L Final Passed - HGB greater than 10 or HCT greater than 30 in past 12 months HEMOGLOBIN (HGB) Date Value Ref Range Status 10/12/2022 13.2 12.0 - 15.8 g/dL Final HEMATOCRIT (HCT) Date Value Ref Range Status 10/12/2022 41.9 36.0 - 47.0 % Final Refused Prescriptions Disp Refills ergocalciferol (VITAMIN D) 76397 UNIT Capsule 4 Capsule 2 Sig: Take 1 Capsule by mouth once a week for 12 doses. Vitamin Supplements (Adult) Protocol Failed - 03/31/2023 6:37 PM Failed - Active on medication list Failed - Vitamin D dose not greater than 1.25mg Passed - Visit with relevant provider in past 12 months or upcoming 90 days Recent Visits Date Type Provider Dept 03/12/23 Telemedicine Tip Dietrich MD [facility] 01/11/23 Telemedicine Tip Dietrich MD [facility] 10/24/22 Telemedicine Tip Dietrich MD [facility] 10/12/22 Office Visit Holly Limon APRN, CNP [facility] 07/02/22 Office Visit Tip Dietrich MD [facility] 04/03/22 Office Visit Tip Dietrich MD [facility] [place] Showing recent visits within past 365 days and meeting all other requirements Future Appointments Date Type Provider Dept 05/13/23 Appointment Tip Dietrich MD [facility] [place] Showing future appointments within next 90 days and meeting all other requirements EMS SECURITY ANALYST * Telephone Encounter - Jami Sy RN - 03/31/2023 3:55 PM CST Patient calling to check on her Ibuprofen and Vitamin D prescriptions. Both are pended for review. EMS SECURITY ANALYST documented in this encounter Plan of Treatment Upcoming Encounters Date Type Department Care Team (Late st Contact Info) Description 09/23/2024 10:00 AM CDT Office Visit [facility] Family Medicine [facility] #2 [place] [address] Tip Dietrich MD #[address] [address] 11/05/2024 10:15 AM CDT Office Visit [facility] - Pulmonology & Sleep Medicine - [place] #2 [place] [address] Neymar Dempsey MD #2 [place] [address] documented as of this encounter Visit Diagnoses Not on filedocumented in this encounter Additional Health Concerns Infection Onset Date Last Indicated Resolved Time COVID - 19 04/01/2024 04/01/2024 04/01/2024 11:1 2 AM SYSTEMS SECURITY ANALYST COVID - 19 07/11/2024 07/11/2024 07/11/2024 10:1 4 AM CDT documented as of this encounter Care Teams Mine Inspector Relationship Specialty Start Date End Date Tip Dietrich MD #[address] [address] PCP - General Family Medicine 11/13/21 Hussain Billings MD #[address] [address] Consulting Physician Colon and Rectal Surgery 12/05/21 Loretta Maurice MD #[address] [address] Consulting Physician Endocrinology 01/16/22 Kisha Carballo, HEEL COVERER [place] Customer Care Assistant Respiratory Therapy Manager 04/03/23 10/30/23 Neymar Dempsey MD #2 [place] [address] Consulting Physician Pulmonary Disease 09/20/23 Hanna Morrell APRN, MANAGER SEARCH #[address] [address] Nurse Practitioner Advanced Practice Nurse 12/23/23 Kisha Carballo, BRIANNE [place] Customer Care Assistant Respiratory Therapy Manager 03/04/24 Neymar Dempsey MD #2 [place] [address] Consulting Physician Pulmonary Disease 05/05/24 5 documented as of this encounter
--- OUTSIDE RECORDS SUMMARY | 2024-08-25 09:32 | XMS_ITS | Encounter Summary ---
Author Organization [facility] Address [address] [place] [address] Phone Care Team Providers Care Video Tape Duplicator Name Role Phone Tip Dietrich MD Primary Care Provider +1 [phone] Kisha Carballo Unavailable Unavailab Hussain Park MD Unavailable Loretta Maurice MD Unavailable Kisha Carballo Unavailable Unavailab Neymar Peterson MD Unavailable Hanna Morrell APRN, RETURNS PROCESSOR Unavailable +- [phone] Kisha Carballo Unavailable Unavailab Neymar Peterson MD Unavailable Reason for Visit * Reason Comments Medication Refill Encounter Details Date Type Department Care Team (Late st Contact Info) Description 07/19/2022 Refill [facility] - Family Medicine [facility] #2 [place] [address] Tip Dietrich MD #[address] [address] Medication Refill Social History Tobacco Use Types [...] Telephone Encounter - Jesi Shaw RMA - 07/24/2022 4:29 PM CDT LVM * Telephone Encounter - Jesi Shaw RMA - 07/23/2022 3:08 PM CDT LVM to return call * Telephone Encounter - Arlene Mirza RN - 07/19/2022 4:14 PM CDT Needs lab work * Telephone Encounter - Arlene Mirza RN - 07/19/2022 4:13 PM CDT Vitamin D cancelled at [facility] * Telephone Encounter - Tip Dietrich MD - 07/19/2022 9:14 AM CDT Please tell her pharmacy to cancel this Vit. D script that I accidentally approved. She needs to get the Vit. D lab done first (nonfasting). She has an open lab order for this. Thanks! * Telephone Encounter - Magalie Beckman RN - 07/19/2022 8:53 AM CDT Medication failed the protocol, provider to review and approve the medication order if appropriate. Requested Prescriptions Pending Prescriptions Disp Refills ibuprofen (MOTRIN) 600 MG Tablet [Pharmacy Med Name: IBUPROFEN 600 MG TABLET] 30 Tablet 3 Sig: Take 1 Tablet by mouth daily as needed for Mild or more severe pain. NSAIDs Protocol Passed - 07/19/2022 7:23 AM Passed - Normal serum creatinine in past 12 months CREATININE, BLOOD Date Value Ref Range Status 04/04/2022 0.85 0.60 - 1.10 mg/dL Final Passed - No positive test in the past 12 months or most recent test was negative Passed - Visit with relevant provider in past 12 months or upcoming 90 days Recent Visits Date Type Provider Dept 07/02/22 Office Visit Tip Dietrich MD [facility] 04/03/22 Office Visit Tip Dietrich MD [facility] 12/26/21 Office Visit Tip Dietrich MD [facility] 12/11/21 Office Visit Sam Rowell APRN, [facility] [place] 11/13/21 Office Visit Sam [place]ell APRN, [facility] [place] Showing recent visits within past 365 days and meeting all other requirements Future Appointments Date Type Provider Dept 10/03/22 Appointment Tip Dietrich MD [facility] Showing future appointments within next 90 days and meeting all other requirements Passed - No active on record Passed - No matching NSAID med order in past 45 days No matching medication orders between 06/04/2022 8:53 AM and 07/19/2022 8:53 AM Passed - AST less than 55 or ALT less than 90 in past 12 months SGOT (AST) Date Value Ref Range Status 03/20/2022 13 <=32 U/L Final SGPT (ALT) Date Value Ref Range Status 03/20/2022 10 <=41 U/L Final Passed - HGB greater than 10 or HCT greater than 30 in past 12 months HEMOGLOBIN (HGB) Date Value Ref Range Status 03/20/2022 14.1 12.0 - 15.8 g/dL Final HEMATOCRIT (HCT) Date Value Ref Range Status 03/20/2022 44.5 36.0 - 47.0 % Final ergocalciferol (VITAMIN D) 42333 UNIT Capsule [Pharmacy Med Name: VITAMIN D2 1.25MG(50,000 UNIT)] 4Capsule 2 Sig: Take 1 Capsule by mouth once a week for 12 doses. Vitamin Supplements (Adult) Protocol Failed - 07/19/2022 7:23 AM Failed - Active on medication list Failed - Vitamin D less than 1.25mg Passed - Visit with relevant provider in past 12 months or upcoming 90 days Recent Visits Date Type Provider Dept 07/02/22 Office Visit Tip Dietrich MD [facility] 04/03/22 Office Visit Tip Dietrich MD [facility] 12/26/21 Office Visit Tip Dietrich MD [facility] 12/11/21 Office Visit Sam Rowell APRN, CNP [facility] 11/13/21 Office Visit Sam [facility] Show[facility] recent visits within past 365 days and meeting all other requirements Future Appointments Date Type Provider Dept 10/03/22 Appointment Tip Dietrich MD [facility] Showing future appointments within next 90 days and meeting all other requirements documented in this encounter Plan of Treatment Upcoming Encounters Date Type Department Care Team (Late st Contact Info) Description 09/23/2024 10:00 AM CDT Office Visit 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 COVID - 19 07/11/2024 07/11/2024 07/11/2024 10:1 4 AM CDT documented as of this encounter Care Teams Video Tape Duplicator Relationship Specialty Start Date End Date Tip Dietrich MD #2 [facility] [address] [place] [address] PCP - General Family Medicine 11/13/21 Kisha Carballo LSW [place] Teacher Aide 11/23/21 08/30/22 Hussain Billings MD #2 [facility] [address] [place] [address] Consulting Physician Colon and Rectal Surgery 12/05/21 Loretta Maurice MD #[address] [address] Consulting Physician Endocrinology 01/16/22 Kisha Carballo LSW [place] Coverstitch Machine Operator Teacher Aide 04/03/23 10/30/23 Neymar Dempsey MD #2 [place] [address] Consulting Physician Pulmonary Disease 09/20/23 Hanna Morrell, CURTAIN WORKER, RETURNS PROCESSOR #2 [facility] [address] [place] [address] Nurse Practitioner Advanced Practice Nurse 12/23/23 Kisha Carballo, [facility] Coverstitch Machine Operator Teacher Aide 03/04/24 Neymar Dempsey MD #2 [place] [address] Consulting Physician Pulmonary Disease 05/05/24 5 documented as of this encounter
--- OUTSIDE RECORDS SUMMARY | 2024-08-25 09:32 | XMS_ITS | Encounter Summary ---
Author Organization [facility] Address [address] [place] [address] Phone Care Team Providers Care Medical Record Librarian Name Role Phone iTp Dietrich MD Primary Care Provider +1 [phone] Hussain Billings MD Unavailable Loretta Maurice MD Unavailable Kisha Carballo Unavailable Unavailab Neymar Peterson MD Unavailable Hanna Morrell APRN, AUTO SERVICE STATION ATTENDANT Unavailable +- [phone] Kisha Carballo Unavailable Unavailab Neymar Peterson MD Unavailable Reason for Visit * Reason Comments Medication Refill Encounter Details Date Type Department Care Team (Late st Contact Info) Description 11/04/2022 Refill [facility] - Family Medicine [facility] #2 [place] [address] Tip Dietrich MD #[address] [address] Medication Refill Social History Tobacco Use Types [...] suspected to have Coronavirus/COVID-19? No / Unsure 10/12/2022 7:42 AM CDT documented as of this encounter Miscellaneous Notes * Telephone Encounter - Avis Locke RN - 11/04/2022 2:27 PM CDT Medication failed the protocol, provider to review and approve the medication order if appropriate. Requested Prescriptions Pending Prescriptions Disp Refills ibuprofen (MOTRIN) 600 MG Tablet [Pharmacy Med Name: IBUPROFEN 600 MG TABLET] 30 Tablet 3 Sig: TAKE 1 TABLET BY MOUTH ONCE DAILY NEEDED FOR MILD OR MORE SEVERE PAIN NSAIDs Protocol Passed - 11/04/2022 2:14 PM Passed - Normal serum creatinine in past 12 months CREATININE, BLOOD Date Value Ref Range Status 10/12/2022 0.74 0.60 - 1.10 mg/dL Final Passed - No positive test in the past 12 months or most recent test was negative Passed - Visit with relevant provider in past 12 months or upcoming 90 days Recent Visits Date Type Provider Dept 10/24/22 Telemedicine Tip Dietrich MD [facility] 10/12/22 Office Visit Holly Limon APRN, [facility] [place] 07/02/22 Office Visit Tip Dietrich MD [facility] 04/03/22 Office Visit Tip Dietrich MD [facility] 12/26/21 Office Visit Tip Dietrich MD [facility] 12/11/21 Office Visit Sam Rowell APRN, [facility] [place] 11/13/21 Office Visit Sam Rowell APRN, [facility] [place] Showing recent visits within past 365 days and meeting all other requirements Future Appointments Date Type Provider Dept 01/11/23 Appointment Tip Dietrich MD [facility] Showing future appointments within next 90 days and meeting all other requirements Passed - No active on record Passed - No matching NSAID med order in past 45 days No matching medication orders between 09/20/2022 2:27 PM and 11/04/2022 2:27 PM Passed - AST less than 55 or [...] 10/12/2022 41.9 36.0 - 47.0 % Final ergocalciferol (VITAMIN D) 46515 UNIT Capsule [Pharmacy Med Name: VITAMIN D2 1.25MG(50,000 UNIT)] 4Capsule 2 Sig: Take 1 Capsule by mouth once a week for 12 doses. Vitamin Supplements (Adult) Protocol Failed - 11/04/2022 2:14 PM Failed - Active on medication list Failed - Vitamin D dose not greater than 1.25mg Passed - Visit with relevant provider in past 12 months or upcoming 90 days Recent Visits Date Type Provider Dept 10/24/22 Telemedicine Tip Dietrich MD [facility] [...] requirements Future Appointments Date Type Provider Dept 01/11/23 Appointment Tip Dietrich MD [facility] Showing future appointments within next 90 days and meeting all other requirements documented in this encounter Plan of Treatment Upcoming Encounters Date Type Department Care Team (Late st Contact Info) Description 09/23/2024 10:00 AM CDT [facility] Visit [facility] - Family Medicine - [place] #2 [place] [address] Tip Dietrich MD #2 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 [address] [place] [address] PCP - General Family Medicine 11/13/21 Hussain Billings MD #[address] [address] Consulting Physician Colon and Rectal Surgery 12/05/21 Loretta Maurice MD #2 [place] [address] [place] [address] Consulting Physician Endocrinology 01/16/22 Kisha Carballo, BINDER TECHNICIAN [place] Phlebotomist Supervisor/Instructor Supervisor Metal Furniture Assembly 04/03/23 10/30/23 Neymar Dempsey MD #[address] [place] [address] Consulting Physician Pulmonary Disease 09/20/23 Hanna Morrell, NURSING CENTER TUTOR, AUTO SERVICE STATION ATTENDANT #2 [facility] [address] [place] [address] Nurse Practitioner Advanced Practice Nurse 12/23/23 Kisha Carballo LSW [place] Phlebotomist Supervisor/Instructor Supervisor Metal Furniture Assembly 03/04/24 Neymar Dempsey MD #[address] [place] [address] Consulting Physician Pulmonary Disease 05/05/24 5 documented as of this encounter
--- OUTSIDE RECORDS SUMMARY | 2024-08-25 09:32 | XMS_ITS | Encounter Summary ---
Author Organization [facility] Address [address] [place] [address] Phone Care Team Providers Care Breakdown Man Name Role Phone Tip Dietrich MD Primary Care Provider [phone] Hussain Billings MD Unavailable Loretta Maurice MD Unavailable Kisha Carballo Unavailable Unavailab Neymar Peterson MD Unavailable Hanna Morrell APRN, AIRCRAFT SALES REPRESENTATIVE Unavailable +- [phone] Kisha Carballo Unavailable Unavailab Neymar Peterson MD Unavailable Reason for Visit * Reason Comments Medication Refill Encounter Details Date Type Department Care Team (Late st Contact Info) Description 02/02/2023 Refill [facility] - Family Medicine [facility] [address] [place] [address] Tip Dietrich MD #[address] [address] Medication Refill Social History Tobacco Use Types [...] Telephone Encounter - Arlene Mirza RN - 02/04/2023 10:32 AM CDT Images from the original note were not included. Triamterene-HCTZ Dispensed Days Supply Quantity Provider Pharmacy TRIAMTERENE-HCTZ 37.5-25 MG CP 01/09/2023 90 90 Each Tip Dietrich MD [id number] - [place]... TRIAMTERENE-HCTZ 37.5-25 MG CP 10/14/2022 90 90 Each Tip Dietrich MD [id number] - A... documented in this encounter Plan of Treatment Upcoming Encounters Date Type Department Care Team (Late st Contact Info) Description 09/23/2024 10:00 AM CDT Office Visit [facility] - Family Medicine - [place] [address] [place] [address] Tip Dietrich MD #[address] [address] 11/05/2024 10:15 AM CDT Office Visit 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 [address] [place] [phone] Consulting Physician Endocrinology 01/16/22 Kisha Carballo, MISDRAW HAND [place] Recycling Or Rubbish Collector Refrigerating Oiler 04/03/23 10/30/23 Neymar Dempsey MD [address] [place] [phone] Consulting Physician Pulmonary Disease 09/20/23 Hanna Morrell, ER MANAGER, AIRCRAFT SALES REPRESENTATIVE #2 [facility] [address] [place] [address] Nurse Practitioner Advanced Practice Nurse 12/23/23 Kisha Carballo LSW [place] Recycling Or Rubbish Collector Refrigerating Oiler 03/04/24 Neymar Dempsey MD [address] [place] [phone] Consulting Physician Pulmonary Disease 05/05/24 5 documented as of this encounter
--- OUTSIDE RECORDS SUMMARY | 2024-08-25 09:32 | XMS_ITS | Encounter Summary ---
Author Organization [facility] Address [address] [place] [address] Phone Care Team Providers Care Outreach Assistant Name Role Phone Tip Dietrich MD Primary Care Provider [phone] Kisha Carballo Unavailable Unavailab Hussain Park MD Unavailable Loretta Maurice MD Unavailable Kisha Carballo Unavailable Unavailab Neymar Peterson MD Unavailable Hanna Morrell APRN, HARNESS MAKER Unavailable +- [phone] Kisha Carballo Unavailable Unavailab Neymar Peterson MD Unavailable Reason for Visit * Reason Comments Medication Refill Encounter Details Date Type Department Care Team (Late st Contact Info) Description 05/01/2022 Refill [facility] - Family Medicine - [place] [address] [place] [address] Tip Dietrich MD #[address] [address] Medication Refill Social History Tobacco Use Types [...] suspected to have Coronavirus/COVID-19? 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 Requested Prescriptions Pending Prescriptions Disp Refills tiZANidine (ZANAFLEX) 2 MG Tablet [Pharmacy Med Name: TIZANIDINE HCL 2 MG TABLET] 60 Tablet 0 Sig: TAKE 1-2 TABS AT BEDTIME NEEDED Not Delegated - Muscle Relaxants Protocol Failed - 05/01/2022 12:02 AM Failed - This refill cannot be delegated Passed - Visit with relevant provider in past 12 months or upcoming 90 days Recent Visits Date Type Provider Dept 04/03/22 Office Visit Tip Dietrich MD [facility] 12/26/21 Office Visit Tip Dietrich MD [facility] 12/11/21 Office Visit Sam Rowell APRN, [facility] 11/13/21 [facility] [place] Showing recent visits within past 365 [...] Range Status 03/20/2022 10 <=41 U/L Final E PRODUCTS MAKER documented in this encounter Plan of Treatment Upcoming Encounters Date Type Department Care Team (Late st Contact Info) Description 09/23/2024 10:00 AM CDT Office Visit [facility] Family [facility] [address] [place] [address] Tip Dietrich MD #[address] [address] 11/05/2024 10:15 AM CDT Office Visit [facility] - Pulmonology & Sleep Medicine [facility] #[address] [place] [phone] Neymar Dempsey MD [address] [place] [address] documented as of this encounter Visit Diagnoses Not on filedocumented in this encounter Additional Health Concerns Infection Onset Date Last Indicated Resolved Time COVID - 19 04/01/2024 04/01/2024 04/01/2024 11:1 2 AM MAPLE PRODUCTS MAKER COVID - 19 07/11/2024 07/11/2024 07/11/2024 10:1 4 AM CDT documented as of this encounter Care Teams Outreach Assistant Relationship Specialty Start Date End Date Tip Dietrich MD #[address] [address] PCP - General Family Medicine 11/13/21 Kisha Carballo LSW [place] Montessori Preschool Teacher 11/23/21 08/30/22 Hussain Bililngs MD #[address] [address] Consulting Physician Colon and Rectal Surgery 12/05/21 Loretta Maurice MD #[address] [address] Consulting Physician Endocrinology 01/16/22 Kisha Carballo, BRIANNE [place] Rubber Stamp Die Inspector [employer]ori Preschool Teacher 04/03/23 10/30/23 Neymar Dempsey MD [address] [place] [address] Consulting Physician Pulmonary Disease 09/20/23 Hanna Morrell APRN, HARNESS MAKER #2 [facility] [address] [place] [address] Nurse Practitioner Advanced Practice Nurse 12/23/23 Kisha Carballo, BRIANNE [place] Rubber Stamp Die Inspector Mont[employer]ori Preschool Teacher 03/04/24 Neymar Dempsey MD [address] [place] [address] Consulting Physician Pulmonary Disease 05/05/24 5 documented as of this encounter
--- OUTSIDE RECORDS SUMMARY | 2024-08-25 09:32 | XMS_ITS | Clinical Summary ---
Author Organization [facility] Address [address] [place] [address] Phone Care Team Providers Care Getter Filler Name Role Phone Tip Dietrich MD Primary Care Provider [phone] Hussain Billings MD Unavailable Loretta Maurice MD Unavailable Neymar Dempsey MD Unavailable Hanna Morrell INSPECTOR WATCH PARTS, MEDIA MONITOR Unavailable [phone] Kisha Carballo PROGRAM PRODUCTION SPECIALIST Unavailable Unavailab le Allergies No known active allergies Medications albuterol 108 (90 Base) MCG/ACT Aerosol Solution take 1-2 Puffs by inhalation every 6 hours as needed for Wheezing. 18 g 1 4 Active Blood Glucose Monitoring Suppl (OneTouch Verio Flex System) w/Device Kit 4 Active gabapentin (NEURONTIN) 300 MG CapsuleIndicatio ns:Spinal stenosis of lumbar region with neurogenic claudication Take 1 Capsule by mouth 3 times daily. 90 Capsule 5 4 Active amLODIPine (NORVASC) 5 MG TabletIndication s:Primary hypertension Take 1 Tablet by mouth 2 times daily. 180 Tablet 3 4 Active atorvastatin (LIPITOR) 40 MG Tablet Take 1 Tablet by mouth daily. 90 Tablet 3 4 Active varenicline (Chantix Continuing Month Ga) 1 MG Tablet Take 1 Tablet by mouth 2 times daily. 60 Tablet 1 4 Active Additional Information Patient not taking.Reported on 08/03/2024 metoprolol Succinate (TOPROL-XL) 25 MG TABLET SR 24 HR Take 1 Tablet by mouth daily. 90 Tablet 3 4 Active ferrous sulfate 325 (65 Fe) MG TabletIndication s:Iron deficiency anemia, unspecified iron deficiency anemia type Take 1 Tablet by mouth daily. 90 Tablet 4 Active Blood Pressure Monitoring (Blood Pressure Cuff) MiscIndications: Primary hypertension Dispense battery-powered arm cuff. Dx: I10 1 Each 4 Active meclizine (ANTIVERT) 25 MG Tablet Take 25 mg by mouth daily as needed. 4 Active acetaminophen-co deine (TYLENOL #3) 300-30 MG TabletIndication s:Chronic pain of both knees Take 1 Tablet by mouth 2 times daily as needed for Moderate or more severe pain. 60 Tablet 5 Active triamterene-hydr ochlorothiazide (DYAZIDE) 37.5-25 MG CapsuleIndicatio ns:Primary hypertension Take 1 Capsule by mouth daily. 90 Capsule 3 5 Active docusate sodium (COLACE) 100 MG CapsuleIndicatio ns:Constipation, unspecified constipation type Take 1 Capsule by mouth daily. 90 Capsule 3 5 Active ibuprofen (MOTRIN) 200 MG Tablet Take 3 Tablets by mouth every 6 hours as needed for Fever. 30 Tablet 5 Active Additional Information Patient not taking.Reported on 08/03/2024 tiZANidine (ZANAFLEX) 2 MG Tablet Take 1 Tablet by mouth nightly as needed for Muscle spasms. 30 Tablet 5 Active Active Problems Problem Noted Date Diagnosed Date Viral syndrome 07/15/2024 Chronic pain of both knees 06/29/2024 Ataxic gait 06/29/2024 Armpit abscess 05/21/2024 Vertigo 05/21/2024 Bronchitis 01/01/2024 Rash 01/01/2024 Hyperlipidemia 10/21/2023 Chest pain 10/21/2023 Tobacco abuse 10/21/2023 AMADOR (obstructive sleep apnea) 09/20/2023 Spinal stenosis of lumbar re gion with neurogenic claudication 08/22/2023 Abnormal thyroid ultrasound 07/17/2023 Hot flashes 07/17/2023 Constipation 05/13/2023 Postmenopausal 05/13/2023 Chronic pain of left knee 03/30/2023 Sciatica of left side 02/28/2023 Hypokalemia 01/11/2023 Syncope 01/11/2023 History of pneumonia 01/11/2023 Breast cancer screening by mammogram 01/11/2023 COVID-19 10/27/2022 Morbid obesity 07/02/2022 Urinary urgency 07/02/2022 Vitamin D deficiency 04/03/2022 Elevated serum creatinine 04/03/2022 Chronic pain syndrome 12/26/2021 HTN (hypertension) 11/13/2021 COPD (chronic obstructive pulmonary disease) 04/2021 Goiter 11/13/2021 Iron deficiency anemia 12/26/2018 Menorrhagia 12/26/2018 Resolved Problems Problem Noted Date Diagnosed Date Resolved Date Tobacco use disorder 07/02/2022 024 Encounters Date Type Department Care Team Description 08/05/2024 Patient Outreach [facility] [address] [place] [phone] Kisha Carballo LSW Care Management (Monthly monitoring ) 08/03/2024 Nurse Triage [facility] [address] [place] [phone] Tip Dietrich MD Ankle Pain 07/28/2024 Telephone [facility] [address] [place] [phone] Tip Dietrich MD Form Completion 07/28/2024 Telephone [facility] [address] [place] [address] Tip Dietrich MD Form Completion 07/22/2024 Refill [facility] [address] [place] [address] Tip Dietrich MD Medication Refill 07/20/2024 Patient Outreach [facility] [address] [place] [phone] Natalia Shah RN Transition of Care (GISELA Week 1) 07/15/2024 5:00 PM CDT [facility] [place] [address] Tip Dietrich MD Viral syndrome (Primary Dx); Primary hypertension 07/15/2024 Telephone [facility] [place] [address] Tip Dietrich MD Results 07/13/2024 Patient Outreach [facility] [address] [place] [address] Tiffanie Galloway RN Transition of Care (Post discharge, initial call ) 07/12/2024 Telephone [facility] [place] [address] Tip Dietrich MD 07/11/2024 8:38 AM CDT - 07/11/2024 11:45 AM CDT Emergency [facility] [address] [place] [phone] David Nguyen MD Acute viral syndrome Discharge Disposition: Discharged to home or Selfcare 07/11/2024 Travel 07/01/2024 Telephone [facility] [address] [place] [phone] Tip Dietrich MD Referral 06/29/2024 5:00 PM CDT [facility] [place] [address] Tip Dietrich MD Chronic pain of both knees (Primary Dx); Ataxic gait; Primary hypertension; Constipation, unspecified constipation type 06/29/2024 [facility] [place] [address] Tip Dietrich MD 06/24/2024 Nurse Triage [facility] [address] [place] [phone] Tip Dietrich MD Knee Pain; Appointment (Telephone appointment ) 06/17/2024 Patient Outreach [facility] [address] [place] [phone] Kisha Carballo LSW Care Management (Monthly monitoring ) 06/04/2024 9:30 AM FIRE ALARM REPAIRER Office Visit [facility] [address] [place] [address] Sam Rowell APRN, MEDIA MONITOR Hyperglycemia (Primary Dx); Morbid obesity (HCC) Discharge Disposition: Discharged to home or Selfcare 06/04/2024 Travel 06/03/2024 Telephone [facility] [address] [place] [phone] Tip Dietrich MD Advice Only from Last 3 Months Family History Medical History Relation Name Comments Hypertension Daughter 1 No Known Problems Daughter 2 Asthma Daughter 3 No Known Problems Half-Sister Cancer Maternal Aunt Lucy colon cancer Cancer Maternal Grandmother Mireya breast Diabetes Maternal Grandmother Mireya Abdominal Aortic Aneurysm Mother Lucy Chronic Obstructive Pulmonary Disease Mother T[place] Hypertension Mother Lucy No Known Problems Son Relation Name Status Comments Daughter 1 Alive Daughter 2 Alive Daughter 3 Alive Father Other does not know f ather Half-Brother 1 Alive Half-Brother 2 Alive Half-Brother 3 Alive Half-Brother 4 Alive Half-Sister Alive Maternal Aunt Lucy Alive Maternal Grandmother Mireya Alive Mother Lucy liver failure, kidney failure, heart disease Son Alive Social History Tobacco Use Types Packs/Day Years Used Date Smoking Tobacco: Every Day Cigarettes 0.3 28.5 Started: 04/15/1996 Smokeless Tobacco: Never Tobacco Cessation:Ready to Q uit: No; Counseling Given: Yes Alcohol Use Standard Drinks/Week Comments Not Currently 0 (1 standard drink = 0.6 oz pur e alcohol) 2-3 times a year [facility] Utilities Answer Date Recorded In the past 12 months has e [employer], gas, oil, or water company threatened to [...] declined 03/04/2024 How often do you attend uatsdin or denominational serv ices? Patient declined 03/04/2024 Do you belong to any clubs o r organizations such as uatsdin groups, unions, fraternal or athletic groups, or [...] Total Score - Questions 1-9 1 05/17 [facility] - Occupational Stress Questionnaire Answer Date Recorded [...] or rent on time? Patient declined 05/13/19 In the last 12 months, how many places have you lived? 2 05/13/2023 In the last 12 months, was t here a time when you did not have a steady place to sleep or slept in a custodial (including now)? Patient declined 05/13/2023 Housing Stability Vital Sign Answer Ojel e Recorded In the last 12 months, was t here a time when you were not able to pay the mortgage or rent on time? Yes 03/04/2024 In the past 12 months, how m any times have you moved where you were living? 2 03/04/2024 At any time in the past 12 m [facility], were you homeless or living in a custodial (including now)? No 03/04/2024 Sexually Active Control Partners Comments Not Currently Male Comments No Sex and Gender Information Value Date Recorded Sex Assigned at Not on file Legal Sex Female 9:43 PM CDT Gender Identity Not on file Sexual Orientation Not on file Last Filed Vital Signs Vital Sign Reading Time Taken Comments Blood Pressure 154/72 07/11/2024 11:44 AM CDT Pulse 80 07/11/2024 11:44 AM CDT Temperature 37.3 C (99.2 F) 07/11/2024 11:44 AM CDT Respiratory Rate 18 07/11/2024 11:44 AM CDT Oxygen Saturation 99% 07/11/2024 11:44 AM CDT Inhaled Oxygen Concentration - - Weight 131.5 kg (290 lb) 07/11/2024 8:36 AM CDT Height 160 cm (5' 3 ) 07/11/2024 8:36 AM CDT Body Mass Index 51.37 07/11/2024 8:36 AM CDT Plan of Treatment Upcoming Encounters Date Type Department Care Team (Late st Contact Info) Description 09/23/2024 10:00 AM CDT Office Visit [facility] - Family Medicine [facility] [address] [place] [address] Tip Dietrich MD [address] [address] 11/05/2024 10:15 AM CDT Office Visit [facility] - Pulmonology & Sleep Medicine [facility] [address] [place] [phone] Neymar Dempsey MD [address] [place] [address] Health Maintenance Due Date Last Done Comments Hepatitis C Virus (HCV) Screening 1975 TdaP Immunization 1975 Hepatitis B Immunization (1 of 3 - 19+ 3-dose series) 1994 Pneumococcal Immunization Combined (1 of 2 - PCV) 1994 HPV/Cotest 2005 Mammogram 07/18/2024 07/19/2023, 12/22/2021, 07/11/2015 Influenza Immunization (Seas on Ended) 2024 Cervical Cancer Screening (CCS) 05/16/2025 Pap Smear 05/16/2025 05/16/2022 Colonoscopy 01/05/2032 01/04/2022, 01/04/2022 Colorectal Cancer Screening 01/05/2032 Respiratory Syncytial Virus (RSV) Immunization (Adult) (1 - 1-dose 75+ series) 2050 01/04/2022 Discussion re Starting/Frequency of Mammograms Completed 07/19/2023, 12/22/2021, 07/11/2015 Human Papillomavirus (HPV) Immunization Aged Out No longer eligible based on patient's age to complete this topic Meningococcal Immunization (ACWY) Aged Out No longer eligible based on patient's age to complete this topic Rotavirus Immunization Aged Out No lo nger eligible based on patient's age to complete this topic SARS-COV-2 Immunization Discontinued Goals Goal Patient Goal Type Associated Problems Recent Progress Patient-Stated? Author Find Help in My Community-furnitur e, housing options Patient Goals On track( 025 1:19 PM FIRE ALARM REPAIRER) Kisha Singleton LSW Note: Follow Up Date Month of 08/07 - call 211 when I need some help - follow-up on any referrals for help I am given Review resources provided for furniture and for housing through [facility] Development Office Reach out to the agencies [...] of Life Patient Goals Not on track( 1:19 PM FIRE ALARM REPAIRER) Kisha Singleton LSW Note: Follow Up Date: [...] your caregiver. These steps may help. Notes: Procedures Procedure Name Priority Date/Time Associated Diagnosis Comments XR CHEST SINGLE VIEW PORTABLE STAT 07/11/2024 9:41 AM CDT RSV,SARS-COV-2,INFLUE NZA A&B BY PCR STAT 07/11/2024 9:32 AM CDT CBC WITH AUTO DIFFERENTIAL STAT 07/11/2024 9:30 AM CDT CMP (COMPREHENSIVE METABOLIC PANEL) STAT 07/11/2024 9:30 AM CDT COMPLETE BLOOD COUNT (CBC) WITH DIFF STAT 07/11/2024 9:30 AM CDT URINALYSIS REFLEX IF INDICATED BY ABNORMAL RESULTS STAT 07/11/2024 9:30 AM CDT POCT GLYCOSYLATED HEMOGLOBIN Routine 06/04/2024 9:51 AM FIRE ALARM REPAIRER Hyperglycemia JOSE SCREENING BILATERAL DIGITAL W CAD W MUKUND Routine 07/19/2023 9:32 AM CDT Breast cancer screening by mammogram from Last 3 Months or Most Recently Relevant to Health Maintenance Results * XR CHEST SINGLE VIEW PORTABLE (07/11/2024 9:41 AM CDT) Anatomical Region Laterality Modality Chest N/A Digital Radiogra phy 07/11/2024 10:1 5 AM CDT Impressions 07/11/2024 10:17 AM CDT IMPRESSION: No acute cardiopulmonary abnormality. Narrative 07/11/2024 10:17 AM CDT EXAM DESCRIPTION: XR CHEST SINGLE VIEW PORTABLE REASON FOR STUDY: fever, nauseas, vomiting, headache since last night. Hx. COPD, HTN TECHNIQUE: Single radiographic view(s) of the chest. COMPARISON: None FINDINGS: LUNGS: No focal opacity, pleural effusion, or pneumothorax. HEART/MEDIASTINUM: Cardiac silhouette normal in size. Mediastinal and hilar contours appear normal. LINES/TUBES: None. BONES: No acute osseous abnormality. THIS IS AN ELECTRONICALLY VERIFIED FINAL REPORT 07/11/2024 10:15 AM - Electronically signed by Keyana Galarza M.D. FT: FT Report ID: [id number] Reading Location: [id number] Procedure Note Keyana Mckeon MD - 07/11/2024 EXAM DESCRIPTION: XR CHEST SINGLE VIEW PORTABLE REASON FOR STUDY: fever, nauseas, vomiting, headache since last night. Hx. COPD, HTN TECHNIQUE: Single radiographic view(s) of the chest. COMPARISON: None FINDINGS: LUNGS: No focal opacity, pleural effusion, or pneumothorax. HEART/MEDIASTINUM: Cardiac silhouette normal in size. Mediastinal and hilar contours appear normal. LINES/TUBES: None. BONES: No acute osseous abnormality. THIS IS AN ELECTRONICALLY VERIFIED FINAL REPORT 07/11/2024 10:15 AM - Electronically signed by Keyana Galarza M.D. FT: FT Report ID: [id number] Reading Location: [place] [address] IMPRESSION: No acute cardiopulmonary abnormality. David Nguyen MD IMG DIAGNOSTIC ORDERABLES Final Result * JONN-COV-2 Flu RSV - (Quad PCR) (07/11/2024 9:32 AM CDT) Pathologist [facility] FLU A Negative Negative, Error 07/11/2024 10:14 AM CDT [facility] FLU B Negative Negative 07/11/2024 10:14 AM CDT [facility] RESP SYNC VIRUS Negative Negative 10:14 AM CDT [facility] SARSCOV2 NOT DETECTED (Reference Range for this test is Not Detected) 07/11/2024 10:14 AM CDT [facility] Comment:This test was perfor med by a Reverse Manager Cath Lab PCR Method. Swab NASOPHARYNGEAL SWAB / Unknown Non-Phlebotomy Collection / Unknown 07/11/2024 9:32 AM CDT 07/11/2024 9:32 AM CDT David Nguyen MD MICROBIOLOGY - GENERAL ORD ERABLES Final Result [facility] [address] [place] [address] * (ABNORMAL) Urinalysis w/ Reflex (07/11/2024 9:30 AM CDT) Pathologist [facility] SPECIFIC GRAVITY 1.010 1.003 - 1.030 07/11/2024 9:39 AM CDT [facility] URINE PH 8.0 5.0 - 9.0 07/11/2024 9:39 AM CDT [facility] WBC ESTERASE Negative Negative 07/11/2024 9:39 AM CDT [facility] NITRITE Negative Negative 07/11/2024 9:39 AM CDT [facility] PROTEIN, RANDOM URINE 15 mg/dL(A) Negative 07/11/2024 9:39 AM CDT [facility] URINE GLUCOSE, QUAL Negative Negative 07/11/2024 9:39 AM CDT [facility] URINE KETONES Negative Negative 07/11/2024 9:39 AM CDT [facility] UROBILINOGEN Normal Normal mg/dL 07/11/2024 9:39 AM CDT [facility] URINE BLOOD Negative Negative maren/ul 07/11/2024 9:39 AM CDT [facility] URINALYSIS COLOR Yellow 07/12/19 9:39 AM CDT [facility] URINALYSIS CLARITY Clear 07/11/2024 9:39 AM CDT [facility] Urine URINE SPECIMEN / Unknown Non-Phlebotomy Collection / Unknown 07/11/2024 9:30 AM CDT 07/11/2024 9:37 AM CDT us David Nguyen MD URINE ORDERABLES Final Res ult [facility] [address] [place] [address] * (ABNORMAL) CBC with Auto Differential (07/11/2024 9:30 AM CDT) WBC 6.33 4.00 - 12.00 10(3)/mcL 07/11/2024 9:33 AM CDT [facility] RBC 5.17 3.80 - 5.30 10(6)/mcL 07/11/2024 9:33 AM CDT [facility] HEMOGLOBIN (HGB) 12.8 12.0 - 15.8 g/dL 07/11/2024 9:33 AM CDT [facility] HEMATOCRIT (HCT) 41.0 36.0 - 47.0 % 07/11/2024 9:33 AM CDT [facility] MCV 79.3(L) 82.0 - 96.0 fL 07/11/2024 9:33 AM CDT [facility] MCH 24.8(L) 26.0 - 34.0 pg 07/11/2024 9:33 AM CDT [facility] MCHC 31.2 31.0 - 36.0 g/dL 07/11/2024 9:33 AM CDT [facility] PLATELET COUNT 251 140 - 440 10(3)/mcL 07/11/2024 9:33 AM CDT [facility] RDW 14.2 11.8 - 15.5 % 07/11/2024 9:33 AM CDT [facility] MPV 11.2 9.7 - 12.4 fL 07/11/2024 9:33 AM CDT [facility] NEUTROPHILS 72.3 47.0 - 73.0 % 07/11/2024 9:33 AM CDT [facility] LYMPHOCYTES 21.8 18.0 - 42.0 % 07/11/2024 9:33 AM CDT [facility] MONOCYTES 5.4 4.0 - 12.0 % 07/11/2024 9:33 AM CDT [facility] EOSINOPHILS 0.2 0.0 - 5.0 % 07/11/2024 9:33 AM CDT [facility] BASOPHILS 0.3 0.0 - 1.0 % 07/11/2024 9:33 AM CDT [facility] ABSOLUTE NEUTROPHILS 4.58 1.60 - 7.70 10(3)/mcL 07/11/2024 9:33 AM CDT [facility] ABSOLUTE LYMPHOCYTES 1.38 1.30 - 3.20 10(3)/mcL 07/11/2024 9:33 AM CDT [facility] ABSOLUTE MONOCYTES 0.34 0.20 - 1.00 10(3)/mcL 07/11/2024 9:33 AM CDT [facility] ABSOLUTE EOSINOPHIL 0.01 0.00 - 0.40 10(3)/mcL 07/11/2024 9:33 AM CDT [facility] ABSOLUTE BASOPHILS 0.02 0.00 - 0.10 10(3)/mcL 07/11/2024 9:33 AM CDT [facility] NRBC PER 100 WBC 0 07/12/19 9:33 AM CDT [facility] Blood Venipuncture / Unknown 07/11/2024 9:30 AM CDT 07/11/2024 9:31 AM CDT us David Nguyen MD HEMATOLOGY ORDERABLES Alma Delia l Result [facility] [address] [place] [address] * (ABNORMAL) CMP (07/11/2024 9:30 AM CDT) SODIUM 141 136 - 145 mmol/L 07/11/2024 9:54 AM CDT [facility] POTASSIUM 4.2 3.5 - 5.1 mmol/L 07/11/2024 9:54 AM CDT [facility] CHLORIDE 104 98 - 107 mmol/L 07/11/2024 9:54 AM CDT [facility] CO2, VENOUS 29 22 - 30 mmol/L 07/11/2024 9:54 AM CDT [facility] ANION GAP 12.2 <18.0 mmol/L 07/11/2024 9:54 AM CDT [facility] GLUCOSE 106(H) 70 - 99 mg/dL 07/11/2024 9:54 AM CDT [facility] BUN 11 5 - 18 mg/dL 07/11/2024 9:54 AM CDT [facility] CREATININE, BLOOD 0.79 0.60 - 1.00 mg/dL 07/11/2024 9:54 AM CDT [facility] BUN/CREATININE RATIO 14 12 - 20 ratio 07/11/2024 9:54 AM CDT [facility] TOTAL PROTEIN 7.8 6.0 - 8.0 g/dL 07/11/2024 9:54 AM CDT [facility] ALBUMIN 4.0 3.5 - 5.0 g/dL 07/11/2024 9:54 AM T [facility] A/G RATIO 1.1 1.0 - 2.2 07/11/2024 9:54 AM CDT [facility] CALCIUM 9.1 8.7 - 10.5 mg/dL 07/11/2024 9:54 AM T [facility] T BILI 0.3 0.2 - 1.2 mg/dL 07/11/2024 9:54 AM [facility] SGOT (AST) 17 <43 U/L 07/11/2024 9:54 AM [facility] SGPT (ALT) 12 <56 U/L 07/11/2024 9:54 AM [facility] ALKALINE PHOSPHATASE 88 40 - 150 U/L 07/11/2024 9:54 AM [facility] GFR, ESTIMATED >60 >=60 07/11/2024 9:54 AM [facility] Comment: Creatinine Clearance is the preferred criteria for selecting drug dose adjustments in renally impaired patients. The GFR is provided as additional pertinent clinical information. GFR is reported in mL/min/1.73 sq m. Calculation based on the Chronic Kidney Disease Epidemiology Collaboration (CKD- EPI) equation refit without adjustment for race. GFR, EST. >60 >=60 025 9:54 AM [facility] GFR, EST. NONAFRICAN >60 >=60 07/11/2024 9:54 AM [facility] Blood Venipuncture / Unknown 07/11/2024 9:30 AM CDT 07/11/2024 9:31 AM CDT us David Nguyen MD CHEMISTRY ORDERABLES Final Result [facility] [address] [place] [address] * POCT GLYCOSYLATED HEMOGLOBIN (06/04/2024 9:51 AM FIRE ALARM REPAIRER) HGB-A1C 5.8 4 - 6 % Blood 06/04/2024 9:51 AM FIRE ALARM REPAIRER us Sam Rowell INSPECTOR WATCH PARTS, MEDIA MONITOR POINT OF CARE TE STING (MANUAL) Final Result * JOSE SCREENING BILATERAL DIGITAL W CAD W MUKUND (07/19/2023 9:32 AM CDT) Anatomical Region Laterality Modality breast Bilateral Mammography 07/19/2023 9:26 AM CDT Narrative 07/19/2023 2:51 PM CDT - JOSE SCREENING BILATERAL DIGITAL W CAD W MUKUND BILATERAL DIGITAL SCREENING MAMMOGRAM 3D/2D WITH CAD WITH MEDIOLATERAL OBLIQUE CRANIOCAUDAL: 07/19/2023 The study was acquired using digital technology and interpreted from soft copy. Current study was also evaluated with ICAD version 7.2. 2D digital mammographic views, as well as 3D digital tomosynthesis were performed in the CC and MLO projections. CLINICAL: Routine screening. Patient has no complaints. Patient was unable to fully cooperate with positioning. No personal history of cancer. Maternal grandmother and maternal great aunt had breast cancer. COMPARISONS: Comparison is made to exam dated: 12/22/2021 [facility]. BREAST TISSUE:There are scattered fibroglandular densities in both breasts. FINDINGS: There is a benign intramammary node in the left breast. No significant masses, calcifications, or other findings are seen in either breast. There has been no significant interval change. IMPRESSION: BI-RAD 2 BENIGN There is no mammographic evidence of malignancy. A 1 year screening mammogram is recommended. A letter will be sent to the patient with these results. The patient will be entered into a reminder system with a target due date of 1 year for her next screening exam. Electronically signed by: Beatriz gongora/penrad:07/19/2023 14:11:12 [employer] Sales Representative(s): BOBBY GoldenR)(M), [facility] letter sent: Normal Exam Reading location: [place] BI-RADS: 2 Benign Procedure Note Beatriz Mcfarland MD - 07/19/2023 - JOSE SCREENING BILATERAL DIGITAL W CAD W MUKUND BILATERAL DIGITAL SCREENING MAMMOGRAM 3D/2D WITH CAD WITH MEDIOLATERAL OBLIQUE CRANIOCAUDAL: 07/19/2023 The study was acquired using digital technology and interpreted from soft copy. Current study was also evaluated with AfterShipD version 7.2. 2D digital mammographic views, as well as 3D digital tomosynthesis were performed in the CC and MLO projections. CLINICAL: Routine screening. Patient has no complaints. Patient was unable to fully cooperate with positioning. No personal history of cancer. Maternal grandmother and maternal great aunt had breast cancer. COMPARISONS: Comparison is made to exam dated: 12/22/2021 [facility]. BREAST TISSUE:There are scattered fibroglandular densities in both breasts. FINDINGS: There is a benign intramammary node in the left breast. No significant masses, calcifications, or other findings are seen in either breast. There has been no significant interval change. IMPRESSION: BI-RAD 2 BENIGN There is no mammographic evidence of malignancy. A 1 year screening mammogram is recommended. A letter will be sent to the patient with these results. The patient will be entered into a reminder system with a target due date of 1 year for her next screening exam. Electronically signed by: Beatriz gongora/penrad:07/19/2023 14:11:12 [employer]ies [employer] Sales Representative(s): RT [place](Tesfaye)(M), [facility] letter sent: Normal Exam Reading location: [place] BI-RADS: 2 Benign Tip Dietrich MD IMG MAMMO ORDERABLES Alma Delia l Result from Last 3 Months or Most Recently Relevant to Health Maintenance Insurance MEDICAID [place] [facility] Care Teams Getter Filler Relationship Specialty Start Date End Date Tip Dietrich MD #[address] [address] PCP - General Family Medicine 11/13/21 Hussain Billings MD #[address] [address] Consulting Physician Colon and Rectal Surgery 12/05/21 Loretta Maurice MD #[address] [phone] Consulting Physician Endocrinology 01/16/22 Neymar Dempsey MD #2 [facility] [place] [address] Consulting Physician Pulmonary Disease 09/20/23 Hanna Morrell APRN, MEDIA MONITOR #2 [facility] [address] [place] [address] Nurse Practitioner Advanced Practice Nurse 12/23/23 Kisha Carballo LSW [place] Deep Submergence Vehicle Operator Measurement Superintendent 03/04/24
--- OUTSIDE RECORDS SUMMARY | 2024-08-25 09:32 | XMS_ITS | Encounter Summary ---
Author Organization [facility] Address [address] [place] [address] Phone Care Team Providers Care Case Operator Name Role Phone Tip Dietrich MD Primary Care Provider [phone] Kisha Carballo Unavailable Unavailab Hussain Park MD Unavailable Loretta Maurice MD Unavailable Kisha Carballo Unavailable Unavailab Neymar Peterson MD Unavailable Hanna Morrell APRN, POTTERY STRIPER Unavailable [phone]- [phone] Kisha Carballo Unavailable Unavailab Neymar Peterson MD Unavailable Reason for Referral * Consult, Test & Initiate Treatment (Less Than 1 Week) - Closed Specialty Diagnoses / Procedures Referred By Contjason t Referred To Contact Diagnoses Chronic back pain greater than 3 months duration Tip Dietrich MD #[address] [address] Phone: tel: fax: [facility] [address] [address] Phone: tel: fax: Referral ID Status Reason Start Date Expiration Date Visits Re quested Visits Authorized [id number] Closed 06/20/2022 1 1 Scheduling Instructions Christiana is being referred to Dr. Massey or other specialist in patient's insurance network for chronic back pain. See below for Christiana's current medications, allergies and problem list. CURRENT MEDS: Current Outpatient Medications: amLODIPine (NORVASC) 5 MG Tablet, Take 1 Tablet by mouth daily., Disp: 90 Tablet, Rfl: 1 docusate sodium (COLACE) 100 MG Capsule, Take 1 Capsule by mouth daily., Disp: 90 Capsule, Rfl: 0 ergocalciferol (VITAMIN D) [address] UNIT Capsule, Take 1 Capsule by mouth once a week for 12 doses., Disp: 12 Capsule, Rfl: 0 ferrous sulfate 325 (65 Fe) MG Tablet, TAKE 1 TABLET BY MOUTH EVERY DAY, Disp: 30 Tablet, Rfl: 1 gabapentin (NEURONTIN) 300 MG Capsule, Take 1 Capsule by mouth 3 times daily., Disp: 90 Capsule, Rfl: 5 HYDROcodone-acetaminophen (NORCO) 5-325 MG Tablet, Take 1 Tablet by mouth 2 times daily as needed for Moderate or more severe pain., Disp: 60 Tablet, Rfl: 0 ibuprofen (MOTRIN) 600 MG Tablet, Take 1 Tablet by mouth daily as needed for Mild or more severe pain., Disp: 30 Tablet, Rfl: 3 tiZANidine (ZANAFLEX) 2 MG Tablet, TAKE 1-2 TABLETS BY MOUTH AT BEDTIME NEEDED, Disp: 60 Tablet, Rfl: 0 triamterene-hydrochlorothiazide (DYAZIDE) 37.5-25 MG Capsule, TAKE 1 CAPSULE BY MOUTH EVERY DAY, Disp: 90 Capsule, Rfl: 1 No current facility-administered medications for this visit. ALLERGIES: No Known Allergies PROBLEM LIST: Patient Active Problem List: Iron deficiency anemia Menorrhagia HTN (hypertension) COPD (chronic obstructive pulmonary disease) (HCC) Goiter Chronic pain syndrome Vitamin D deficiency Elevated serum creatinine GE POSTER Encounter Details Date Type Department Care Team (Late st Contact Info) Description 06/20/2022 Telephone [facility] [address] [place] [address] Tip Dietrich MD #[address] [address] Social History Tobacco Use Types Packs/Day Years [...] Telephone Encounter - Jesi Shaw RMA - 06/21/2022 1:30 PM CHARGE POSTER Notified , vu GE POSTER * Telephone Encounter - Tip Dietrich MD - 06/20/2022 2:26 PM CHARGE POSTER Let her know I have referred her to Dr. Massey / Ortho. Referral order entered. Thanks! GE POSTER * Telephone Encounter - Nydia Alexander RN - 06/20/2022 10:04 AM CST Has been seen in the past for back pain. Pain is not getting worse but is not getting better either. States she discussed with provider before having surgery on her back and wasn't ready but she is now Christiana is requesting a referral to (speciality) Neurosurgery Referral requested for ( be specific on symptoms from patient) back pain in lower back and buttock and shoots down her left leg Does patient had a specific provider they would to see? If yes include name/location Doesn't have anyone specific in mind Has patient been seen by this speciality in past? No. Had an appointment she missed Transferred to [facility] after call for help with refill GE POSTER documented in this encounter Plan of Treatment Upcoming Encounters Date Type Department Care Team (Late st Contact Info) Description 09/23/2024 10:00 AM CDT Office Visit [facility] - Family Medicine [facility] [address] [place] [address] Tip Dietrich MD #[address] [address] 11/05/2024 10:15 AM CDT Office Visit [facility] - Pulmonology & Sleep Medicine [facility] [address] [place] [address] Neymar Dempsey MD #[address] [place] [address] Scheduled Referrals Name Type Priority Associated Diagnoses Order Schedule EXTERNAL ORTHOPEDIC SURGERY REFERRAL Outpatient Referral Less Than 1 week Chronic back pain greater than 3 months duration Expected: 06/20/2022 (Approximate), Expires: 06/21/2023 documented as of this encounter Visit Diagnoses Diagnosis Chronic back pain greater than 3 months duration- Primary Backache, unspecified documented in this encounter Additional Health Concerns Infection Onset Date Last Indicated Resolved Time COVID - 19 04/01/2024 04/01/2024 04/01/2024 11:1 2 AM CHARGE POSTER COVID - 19 07/11/2024 07/11/2024 07/11/2024 10:1 4 AM CDT documented as of this encounter Care Teams Case Operator Relationship Specialty Start Date End Date Tip Dietrich MD #2 [facility] [address] [place] [address] PCP - General Family Medicine 11/13/21 Kisha Carballo LSW [place] Frit Maker 11/23/21 08/30/22 Hussain Billings MD #2 [facility] [address] [place] [address] Consulting Physician Colon and Rectal Surgery 12/05/21 Loretta Maurice MD #[address] [address] [phone] Consulting Physician Endocrinology 01/16/22 Kisha Carballo, GARNETT MACHINE OPERATOR HELPER [place] Trainmaster Frit Maker 04/03/23 10/30/23 Neymar Dempsey MD #2 [place] [phone] Consulting Physician Pulmonary Disease 09/20/23 Hanna Morrell APRN, POTTERY STRIPER #2 [facility] [address] [place] [address] Nurse Practitioner Advanced Practice Nurse 12/23/23 Kisha Carballo, GARNETT MACHINE OPERATOR HELPER [place] Trainmaster Frit Maker 03/04/24 Neymar Dempsey MD #2 [place] [phone] Consulting Physician Pulmonary Disease 05/05/24 5 documented as of this encounter
--- OUTSIDE RECORDS SUMMARY | 2024-08-25 09:32 | XMS_ITS ---
Author Organization [facility] Address [address] [place] [address] Phone Care Team Providers Care Playground Official Name Role Phone Tip Dietrich MD Primary Care Provider [phone] Hussain Billings MD Unavailable Loretta Maurice MD Unavailable Neymar Dempsey MD Unavailable Hanna Morrell APRN, DISASTER RECOVERY ANALYST Unavailable [phone]- [phone] Kisha Carballo Unavailable Unavailab le Ambulatory Complex Care Management Status:Enrolled (Active) Start date:03/04/2024 Enrollment date:03/04/2024 Enrollment reason:Referred by provider Current support & services provided:Digital Solution Architect Care Managed Related social drivers of health:Intimate Partner Violence, Social Connections, Alcohol Use, Tobacco Use, Financial Resource Strain,Stress, Physical Activity, Food Insecurity, Transportation Needs, Housing Stability, Utilities Overview Complex Care Management Program Case Team Name Relationship Phone Kisha DECKER Digital Solution Architect Rotating Equipment Specialist (Responsible Staff) Continued Care and Services Coordination
[2024-08-25 09:52] LABS: Alanine Aminotransferase 25 U/L (6-35); Albumin Level 4.1 g/dL (3.5-5.1); Alkaline Phosphatase 95 U/L (38-126); Anion Gap 8 mmol/L (4-12); Aspartate Amino Transferase 30 U/L (14-36); Bilirubin,Total 0.4 mg/dL (0.2-1.3); Blood Urea Nitrogen 14 mg/dL (7-17); Calcium 8.1 mg/dL (8.4-10.2); Carbon Dioxide 25 mmol/L (22-30); Chloride 107 mmol/L (98-107); Estimated CRCL calculation 121 ml/min; Estimated Glomerular Filt Rate > 60; Glucose 130 mg/dL (65-110); Lipase 71 U/L (23-300); Potassium 3.6 mmol/L (3.4-5.0); Sodium 140 mmol/L (137-145)
[2024-08-25 10:10] LABS: Add Urine Microscopic? YES; Appearance Urine Clear (Clear); Bacteria Urine Rare /hpf; Bilirubin Urine Negative (Negative); Blood Urine Negative (Negative); Color Urine Yellow (Yellow); Glucose Urine UA Negative (Negative); Ketones Urine Trace mg/dL (Negative); Leukocyte Esterase Ur Trace LEU/UL (Negative); Need Manual Microscopic Reviewed; Nitrate Urine Negative (Negative); Non Pathogenic Casts 0-2; Protein Urine 1+ mg/dL (Negative); Squamous Epithelial Cell Urine Few /hpf (Few); Urobilinogen Urine 0.2 mg/dL (<2.0); WBC Urine 0-5 /hpf (0-3)
--- NOTE | 2024-08-25 10:21 | ED.NAVMDI ---
HPI - Nausea/Vomiting/Diarrhea General Chief complaint: Nausea/Vomiting/Diarrhea Stated complaint: n/v/d Time Seen by Provider: 08/25/24 09:03 History of Present Illness HPI Narrative: 49-year-old female with a history of hypertension presents to emergency department for N/V/D that started yesterday. Patient denies recent sick contacts, abdominal pain, chest pain or shortness of breath, fever, dysuria or hematuria. She states she has never had this happen before. Denies recent travel, surgeries or hospitalizations, antibiotic use. States she does have a headache that occurs when she wretches. Denies EtOH use. Admits to using alcohol daily for several years. Has not taken her blood pressure medications today. Related Data Allergies Allergy/AdvReac Type Severity Reaction Status Date / Time No Known Allergies Allergy Verified 08/25/24 09:06 Review of Systems Review of Systems: All systems reviewed & are unremarkable except as noted in HPI and below Exam Narrative: GENERAL: Ill-appearing, moaning in exam bed HEAD: Normocephalic, atraumatic. EYES: EOMI. ENT: Nares clear, no rhinorrhea or epistaxis. Mucous membranes moist. NECK: Supple. CHEST: Clear to auscultation. No respiratory distress. HEART: Regular rate and rhythm. No murmur heard. Normal peripheral pulses. ABDOMEN: Soft, nontender, nondistended, normal active bowel sounds. EXTREMITIES: Normal range of motion. No edema. SKIN: Warm, dry, no rash. NEURO: No focal deficits. Alert and oriented x4. Moving all extremities spontaneously, cranial nerves 2-12 grossly intact Course Vital Signs Vital signs: Vital Signs Temperature 98.1 F 08/25/24 09:01 Pulse Rate 81 08/25/24 09:01 Respiratory Rate 18 08/25/24 09:01 Blood Pressure 190/117 H 08/25/24 09:01 Pulse Oximetry 100 08/25/24 09:01 Oxygen Delivery Room Air 08/25/24 09:01 Temperature 98.1 F 08/25/24 09:01 Pulse Rate 76 08/25/24 10:47 Respiratory Rate 12 08/25/24 10:47 Blood Pressure 159/100 H 08/25/24 10:47 Pulse Oximetry 100 08/25/24 10:47 Oxygen Delivery Room Air 08/25/24 09:01 MDM - Nausea/Vomiting/Diarrhea MDM Narrative Medical decision making narrative: 49-year-old female with history of hypertension presents to the emergency department for N/V/D for the past day. Triage vitals with hypertension of 190/117. She has not taken her antihypertensives today due to symptoms. Patient is afebrile and nontoxic appearing. Abdomen is soft and nontender. She is endorsing headache that occurs with retching. No focal deficits on exam. Lab work shows no leukocytosis or anemia. Chemistries with hypocalcemia of 8.1, normal albumin. Remainder of chemistries are unremarkable. Mag within normal limits. Lipase is normal. UA with trace leuk esterase and small amount of red blood cells, no white blood cells, patient denies symptoms of UTI. is negative. CT brain shows no acute intracranial process. Patient updated on results. She received IV fluids, Zofran, Pepcid and calcium repletion. Unfortunately, patient continued to have nausea so was given Reglan and Haldol with improvement. On re-evaluation she is feeling significantly better, sitting up in exam bed and tolerating p.o. intake. She is requesting to be discharged home. Will provide calcium supplements for home, encouraged repeat lab draw in the next 48 hours by PCP. I suspect her symptoms are secondary to viral gastroenteritis versus cannabinoid hyperemesis syndrome. Advised her to discontinue marijuana, drink plenty of fluids and discussed strict ED return precautions. Zofran sent to pharmacy. She is agreeable with the plan verbalized understanding. Discharged in stable condition. Lab Data 08/25/24 09:17 08/25/24 09:17 Labs: Lab Results 08/25/24 08/25/24 08/25/24 Range/Units 09:17 09:57 10:31 WBC 5.1 (4.5-10.0) K/mm3 RBC 5.21 (4.2-5.4) M/mm3 Hgb 12.8 (12.0-15.0) g/dL Hct 42.0 (37.0-47.0) % MCV 80.6 (80-100) fl MCH 24.6 L (26-34) pg MCHC 30.5 L (32-36) g/dl RDW 14.3 (11.5-14.5) % Plt Count 225 (150-375) k/mm3 MPV 11.4 H (7.4-10.4) fl Immature Gran % (Auto) 0.8 H (0-0.5) % Neut % (Auto) 81.0 H (45.5-73.1) % Lymph % (Auto) 15.0 L (18.3-44.2) % [place] % (Auto) 2.8 (2.6-8.5) % Eos % (Auto) 0.0 (0-4.4) % Baso % (Auto) 0.4 (0.2-1.2) % Lymph # (Auto) 0.76 L (0.9-3.2) K/mm3 [place] # (Auto) 0.1 (0.1-0.6) K/mm3 Eos # (Auto) 0.0 (0-0.3) K/mm3 Baso # (Auto) 0.0 (0.0-0.1) K/mm3 Abs Immat Gran (auto) 0.04 H (0.00-0.031) K/mm3 Absolute Neuts (auto) 4.1 (1.3-6.7) K/mm3 Absolute Nucleated RBC 0.000 (0.0-0.012) K/mm3 Nucleated RBC % 0.0 (0.0-0.2) % Sodium 140 (137-145) mmol/L Potassium 3.6 (3.4-5.0) mmol/L Chloride 107 (98-107) mmol/L Carbon Dioxide 25 (22-30) mmol/L Anion Gap 8 (4-12) mmol/L BUN 14 (7-17) mg/dL Creatinine 0.65 L (0.7-1.0) mg/dL Estim Creat Clear Calc 121 ml/min Estimated GFR > 60 (59 - ) Glucose 130 H (65-110) mg/dL Calcium 8.1 L (8.4-10.2) mg/dL Magnesium 1.9 (1.6-2.3) mg/dL Total Bilirubin 0.4 (0.2-1.3) mg/dL AST 30 (14-36) U/L ALT 25 (6-35) U/L Alkaline Phosphatase 95 (38-126) U/L Total Protein 8.0 (6.3-8.2) g/dL Albumin 4.1 (3.5-5.1) g/dL Lipase 71 (23-300) U/L Urine Color Yellow (Yellow) Urine Appearance Clear (Clear) Urine pH 8.0 (5.0-9.0) Ur Specific Emerson 1.020 (1.001-1.035) Urine Protein 1+ H (Negative) mg/dL Urine Glucose (UA) Negative (Negative) mg/dL Urine Ketones Trace H (Negative) mg/dL Ur Blood (Man) Negative (Negative) Urine Nitrate Negative (Negative) Urine Bilirubin Negative (Negative) Urine Urobilinogen 0.2 (<2.0) mg/dL Add Ur Microanalysis Reviewed Leukocyte Esterase Rfl Trace H (Negative) CRISTOBAL/UL Urine RBC 3-5 H (0-2) /hpf Urine WBC 0-5 (0-3) /hpf Ur Squamous Epith Cells Few (Few) /hpf Urine Bacteria Rare /hpf Urine Casts 0-2 POC Urine HCG, Qual Negative (Negative) Discharge Plan Discharge Clinical Impression: Gastroenteritis, Hypocalcemia Patient Disposition: Home Condition: Stable Instructions: Antibiotic Form, Gastroenteritis (ED), Acute Nausea and Vomiting (ED) Additional Instructions: You were evaluated in the emergency department for nausea, vomiting and diarrhea. Your workup here is reassuring but does show mildly low calcium. Please take calcium supplements as directed. Drink plenty of fluids including water, Gatorade and Pedialyte. Have your calcium recheck by her primary care in the next 48 hours. Return to the emergency department if you develop a fever, focal abdominal pain, you are unable to tolerate food or fluids, or other concerning symptoms. Please stop smoking marijuana as this may be exacerbating her symptoms. Patient Language: [place] Islander Prescriptions: New calcium carbonate 200 mg calcium (500 mg) tablet,chewable 200 mg PO BID Qty: 14 0RF ondansetron 4 mg tablet,disintegrating 4 mg PO Q8H Qty: 14 0RF Follow-up/Referrals: Mehdi Hamilton MD [Physician] - UNKNOWN,DOCTOR [Primary Care Provider] -
--- NOTE | 2024-08-25 10:24 | ECG_ITS ---
Test Date: 2024-08-25 10:45:09 Measurements Intervals [place] Rate: 84 P: 66 RI: 143 QRS: 29 QRSD: 83 T: 5 QT: 412 QTc: 489 Interpretive Statements SINUS RHYTHM WITH SINUS ARRHYTHMIA No previous ECG available for comparison Electronically Signed On 08-25-2024 15:03:50 CDT by William Reinoso M.D.
[2024-08-25 10:33] LABS: BEDSIDEPREGUCG Negative (Negative)
[2024-08-25] MEDS: SODIUM CHLORIDE 0.9% IV 1,000 ML 999 ML IV CONT (10:37)
[2024-08-25] MEDS: CALCIUM CARBONATE (TUMS) 500 MG (200 MG ELEMENTAL) PO (10:37)
[2024-08-25] MEDS: ONDANSETRON INJ 4 MG/2 ML VIAL IV PUSH (10:37)
[2024-08-25] MEDS: FAMOTIDINE 20 MG/2 ML VIAL IV PUSH (10:37)
[2024-08-25 10:44] LABS: Magnesium 1.9 mg/dL (1.6-2.3)
[2024-08-25 10:47] VITALS: BP 159/100; PULSE 76; RESP 12; O2SAT 100
[2024-08-25] MEDS: METOCLOPRAMIDE HCL INJ 10 MG/2 ML VIAL IV PUSH (11:39)
--- NOTE | 2024-08-25 12:39 | PC.NURSE ---
patient to bathroom at this time, required wheelchair due to inability to walk due to being bone on bone
--- NOTE | 2024-08-25 12:45 | PC.NURSE ---
patient is declining haldol injection at this time, and is currently attempting to eat crackers and drink some sprite.
[2024-08-25] MEDS: HALOPERIDOL LACTATE 5 MG/ML VIAL IM (12:53)
--- NOTE | 2024-08-25 12:59 | PC.NURSE ---
patient began vomiting onto the floor while eating crackers and sprite. agreed to the haldol injection to attempt to curb vomiting
--- NOTE | 2024-08-25 13:47 | PC.NURSE ---
patient provided with crackers and her sprite at this time. patient states she's tired and just wants to go home told patient to take a few small bites of crackers and small sips of sprite to ensure that she can hold it down before she goes home.
--- NOTE | 2024-08-25 13:57 | PC.NURSE ---
patient was po challenged with crackers and sprite, was able to hold down oral intake and denied any nausea at this time
== END 2024-08-25 15:00 | disposition home or self-care (01) ==
PROVIDERS: Emergency Provider Physician Assistant
DX: K52.9 Noninfective gastroenteritis and colitis, unspecified (principal); E83.51 Hypocalcemia
CPT/HCPCS: 36415; 70450; 80053; 81001; 81025; 83690; 83735; 85025; 93005; 96361; 96372; 96374; 96375; 99284; A9270; J1630; J2405; J2765; J7030